=== PATIENT | female | born 1990 | race Caucasian/White ===

== ENCOUNTER 2017-04-23 14:00 | Inpatient (IN) | payer MEDICAID, SELFPAY ==
[2015-04-02 14:14] VITALS: BP 93/56
[2016-11-24 14:11] VITALS: BMI 27.3
[2016-11-24 15:12] VITALS: BP 111/62
[2017-04-23 13:26] VITALS: BMI 27.8
[2017-04-23 14:17] LABS: ROM Internal Control Test YES-OK TO RESULT pt. (Internal QC); ROM Patient Test Negative (Negative)
[2017-04-23] MEDS: Lactated Ringers 1,000 ML 50 ML IV ×4 (14:30→23:11)
[2017-04-23 14:49] LABS: Hematocrit 38.4 % (37-47); Hemoglobin 13.7 g/dl (12.0-15.0); Mean Corp Hgb Conc 35.7 g/gl (32-36); Mean Corpuscular Hgb 32.1 pg (27.0-32.0); Mean Corpuscular Volume 89.9 fL (81-99); Mean Platelet Vol. 10.3 fl (6.2-12.0); Platelet Count 247 K/mm3 (150-450); RBC Distribution Width CV 12.5 % (11.6-14.6); RBC Distribution Width SD 40.7 fl (35.1-43.9); Red Blood Count 4.27 M/mm3 (4.2-5.4); White Blood Count 14.2 K/mm3 (4.4-11.0)
[2017-04-23 14:51] LABS: Scan Indicated on CBC? Y/N NO
[2017-04-23] MEDS: Amnioinfusion- 0.9% NS 1,000 ML IV.SOLN. INTRA-UTER (17:30)
[2017-04-23] MEDS: Terbutaline 1 MG/ML Vial 0.25 MG SC (18:29)
--- NOTE | 2017-04-23 19:40 | PCM.HP.OB ---
History Date of Admission: 04/23/17 Gestational age: 38 History of this : 27 YOF @ 38 2/7 weeks gestation w/ EDC of 05/05/17 by lmp confirmed by first trimester US presents c/o ctxs increasing in intensity throughout the am. N o VB/LOF. Admitted for labor. Good FM. uncomplicated to date. She gained no net weight during the . PMHX- abnormal pap smear, chlamydia, PID, anxiety, fracture of spine, seizures PSHX: tonsilectomy, ovarian abscess removed, suction D&C Allergies Penicillins Allergy (Verified 11/24/16 14:13) Swelling Current Medications Acetaminophen (Tylenol) 325 - 650 mg PO Q4H PRN PRN PRN Reason: PAIN OR FEVER >100.4F Al Hydroxide/Mg Hydroxide (Mylanta Ii) 15 - 30 ml PO Q4H PRN PRN PRN Reason: INDIGESTION Citric Acid/Sodium Citrate (Bicitra) 30 ml PO UD PRN Lactated Ringer's () 1,000 mls @ 50 mls/hr IV .Q20H WAQAR Last Admin: 04/23/17 16:17 Dose: 50 mls/hr Naloxone HCl 4 mg/ Dextrose 504 mls @ 0 mls/hr IV PRN PRN; Protocol PRN Reason: TO MAINTAIN RR>10 Nalbuphine HCl (Nubain) 5 - 10 mg IV Q3H PRN PRN PRN Reason: PAIN (4-10/10) Nalbuphine HCl (Nubain) 5 mg IV Q3H PRN PRN Reason: ITCHING Stop: 04/24/17 15:52 Naloxone HCl (Narcan) 0.2 mg IV Q1M PRN PRN Reason: RR<10 AND PT UNRESPONSIVE Stop: 04/24/17 15:52 Ondansetron HCl (Zofran) 4 mg IV Q8H PRN PRN PRN Reason: NAUSEA Promethazine HCl (Phenergan (Ll)) 6.25 - 12.5 mg IV Q4H PRN PRN; Protocol PRN Reason: IF NAUSEA PERSISTS Sodium Chloride () 5 - 15 ml IV UD [facility] Last Admin: 04/23/17 16:16 Dose: Not Given Smoking Status: Current every day smoker Alcohol: None Drug Use: none - during Number of Fetus(es): 1 Review of Systems Constitutional: Denies: Chills, Fever Cardiovascular: Denies: Chest Pain Respiratory: Denies: Cough, Shortness of Breath Physical Exam Vitals: Vital Signs BP 111/62 11/24/16 15:12 General: Alert, No apparent distress, - - uncomfortable w/ ctxs Cardiovascular: Regular rate Lungs: Normal air movement Abdomen: Soft, Non-Distended, Gravid, Appropriate for Gestational Age Extremities:: No edema Estimated gestational size: Appropriate for gestational size Presentation: Cephalic Cervix Dilation (cm): 3 Station: -2 Effacement (%): 70 Assessment/Plan 27 YOF @ 38 2/7 weeks gestation in labor EFW < 4500 gm, pelvis clinically adequate to expect vaginal delivery Epidural if desires
[2017-04-23] MEDS: Ondansetron 4 MG/2 ML Vial IV (20:05)
--- NOTE | 2017-04-23 20:22 | PCM.PN.BLA ---
Progress Note Patient was taken to OR for prolonged deceleration and when she arrived FHTs stable at 130-140 bpm. Given term x 1 as had spont. tachysystole. FHTs then stable w/ minimal then moderate variablity, occas. variable. Amnioinfusion was started. Patient then moved back to her room. Now FHTs 150 bpm w/ moderate variabliity and occas. variable. 8/90/0. Cont. expectant management.
[2017-04-23] MEDS: Acetaminophen 325 MG Tablet PO (21:09)
--- NOTE | 2017-04-23 23:00 | PLAC_PTH ---
PATIENT: RAQUEL MARIO LOC: [facility] U#:[id number] AGE/SX: 27/F ROOM: WP018 RE04/23/[address]: Dr. Deborah Morton MD : 1990 BED: 1 DIS: 04/25/2017 SPEC #: [id number] RECD: 04/24/17 16:42 STATUS: BRAULIO AMRIT #: [id number] MIRYAM: 04/23/17 23:[address]: Deborah Morton DEPT: SURGICAL PATHOLOGY RECD BY: Ag Venegas ENTERED: 04/26/17 10:34 SP TYPE: PLACENTA OTHR DR: Dr. Brett Hoff MD Tissues: Placenta, NOS Procedures: Surgery Specimen Level V HEADER OPERATION: Vaginal delivery PRE-OP DIAGNOSIS: Fever, labor TISSUE SUBMITTED: Placenta MICROSCOPIC DIAGNOSIS Paulino placenta (418 gm): Umbilical cord ? trivascular with acute funisitis. Placental membranes ? acute chorioamnionitis and acute deciduitis. Placental disc ? Thelma-Campbell change, acute deciduitis and acute vasculitis of superficial placental vessels. AM:wilner 04/27/17 MICROSCOPIC DESCRIPTION Slides are reviewed. GROSS DESCRIPTION SPECIMEN: PLACENTA / CLINICAL INFORMATION: A. Weight: 2.849 kg B. Gestational Age: 38 weeks C. Sex: Male PLACENTAL WEIGHT (POST FIXATION): 418 gm PLACENTAL DIMENSIONS: 16 x 16 x 3 cm PLACENTAL SHAPE: Usual ovoid PLACENTAL WEIGHT FOR GESTATIONAL AGE: Within 10-99th percentile MEMBRANES - Present A. Insertion: Marginal B. Site of rupture from edge: 6 cm from edge of placental disc C. Color of membrane: Meadows-levy D. Abnormalities: None UMBILICAL CORD ? Present, received in two fragments (detached and attached) A. Color: Meadows-levy B. Insertion: Eccentric C. Length: 25 cm D. Diameter: 1 cm E. Number of vessels: Three F. Abnormalities: None PLACENTAL DISC - Present A. Color of surface: Meadows-levy B. surface abnormalities: None C. Maternal cotyledons: Intact with minimal tears D. Attached retro placental clot: No clot E. Cut surface: Dark red and spongy F. Lesions: None G. Separate clot: Absent SECTIONS SUBMITTED: 1. Membrane roll and umbilical cord ( end notched) 2. Placental disc, and maternal surfaces 3. Placental disc, and maternal surfaces 4. Placental disc, and maternal surfaces AM:wilner 04/26/17 TC:2 CPT: 01624
[2017-04-23] MEDS: Oxytocin 30 units/NS 500 ml 30 UNITS/500 ML IV.SOLN 334 UNITS IV (23:41)
[2017-04-23] MEDS: Methylergonovine 0.2 MG/ML Ampul IM (23:46)
--- NOTE | 2017-04-23 23:55 | PCM.OB.VAG ---
Vaginal Delivery Maternal Presentation: Active Labor Amniotic Membrane Rupture Type: Artificial Amniotic Fluid Description: Clear Final FRANSICO: 05/05/17 Gestational age: 38 Weeks and 2 Days Date of Procedure: 04/23/17 Pre-Operative Diagnosis: labor Post-Operative Diagnosis: same Surgery/ Procedure Performed: Spontaneous Vaginal Delivery Type of Anesthesia: Epidural Description of Procedure: A vigorous male was delivered [LIANNA] over intact perineum. Loose nuchal cord ?1 was delivered through and then reduced easily. the remainder the infant was delivered with maternal pushing and gentle traction only in less than 15 seconds. The Pitocin infusion was initiated for active management of the third stage. The cord was clamped and cut [after 1 minute]. The was attended to by the waiting nursing staff. The placenta was delivered spontaneously and intact. The cervix and vagina were intact. Sponge and needle counts were correct. He was given 1 dose of Methergine IM to prevent atony. A vaginal sweep was completed by me. The Mirena IUD was inserted in the usual fashion and the strings cut to 2 cm. Presentation: LIANNA Placental Delivery Description: Spontaneous Placenta Disposition: [facility] Cord Vessel Description: 3 Vessels Nuchal Cord Compression: Without compression Cord Entanglement: Around neck x 1, loose Drain: Henry to straight drain Estimated Blood Loss: 450 Infant A gender: Male (1 minute): 8 (5 minute): 9 Episiotomy Description: None Laceration: None Medications given after delivery: IV Pitocin Complications: None
[2017-04-24] MEDS: Oxytocin 30 units/NS 500 ml 30 UNITS/500 ML IV.SOLN 167 UNITS IV (00:10)
[2017-04-24 02:06] VITALS: BP 114/69; PULSE 98; RESP 20; TEMP 36.7; O2SAT 98
[2017-04-24] MEDS: Naproxen 250 MG Tablet PO (02:20)
[2017-04-24] MEDS: 0.9% Saline Lock 10 ML Syringe IV (02:21)
[2017-04-24 05:40] VITALS: BP 90/53; PULSE 93; RESP 18; TEMP 36.6; O2SAT 98
[2017-04-24 09:05] VITALS: BP 106/36; PULSE 74; RESP 18; TEMP 36.3
--- NOTE | 2017-04-24 09:53 | PCM.PN.OB ---
Subjective: No complaints - Physical Exam General: Alert, Oriented x3 Abdomen: Soft, Non Tender, Non-Distended - ff mid & below umb Extremities: No Calf Tenderness Vital Signs Temp Pulse Resp BP Pulse Ox 97.8 F 93 18 90/53 L 98 04/24/17 05:40 04/24/17 05:40 04/24/17 05:40 04/24/17 05:40 04/24/17 05:40 Oxygen Delivery Method Room Air Weight: 162 lb 0.636 oz Body Mass Index (BMI) 27.8 Intake and Output for Last 24 Hours 04/22/17 04/23/17 04/24/17 23:59 23:59 23:59 Intake Total 1886 / 1886 1371 / 1371 Output Total 1896 / 1896 1800 / 1800 Balance -10 / -10 -429 / -429 Laboratory Tests Past 24 Hrs 04/23/17 04/23/17 04/23/17 13:40 14:30 14:30 WBC 14.2 H RBC 4.27 Hgb 13.7 Hct 38.4 MCV 89.9 MCH 32.1 H MCHC 35.7 RDW 12.5 RDW Differential 40.7 Plt Count 247 MPV 10.3 Vag Amniotic Fld Detect Negative Blood Type O POSITIVE Antibody Screen NEGATIVE Assessment/Plan PPD#1 Routine care
[2017-04-24 12:00] VITALS: BP 101/62; PULSE 76; RESP 18; TEMP 36.8
[2017-04-24 16:35] VITALS: BP 98/54; PULSE 68; RESP 18; TEMP 36.1; O2SAT 98
--- NOTE | 2017-04-24 17:26 | CASEMGMT ---
Referral received d/t report of pt's previous chemical dependency and incarceration. Met with pt to discuss. Introduced self and role; pt voiced awareness that a social work referral had been made and why. Pt reported that she was released from incarceration in July of 2016 and became fairly soon thereafter. She stated that she completed all assigned tasks/trainings/testing since her release. Her armored vehicle officer is Vijaya Wilder and at this point because of her compliance she is having only monthly meetings with her. Pt said that her armored vehicle officer directed her to complete a CBT group as well as a parenting group, both of which she described as having been helpful. Pt stated that she has had regular drug tests and denied any difficulty maintaining her sobriety, stating she is done with drugs and that they ruined my life. Pt is currently employed as a cook at [employer] and said she is able to take up to twelve weeks off from work without concern for losing her job. She said at this time she plans to return to work once she is medically cleared to do so. Pt is in a relationship with FORamakrishna, Andres Munoz, but they do not live together. Pt resides with her father and AYAD lives with his brother and COREY, who were visiting pt/baby this afternoon. This is pt's first child. She was ordered to one year of probation but said that her armored vehicle officer has mentioned possibly discontinuing probation earlier because pt has been consistent and compliant with court orders and expectations. Pt said she has a bassinet, diapering supplies, formula and bottles, and an infant carrier to take the baby home. Provided pt with written and verbal information re: PPD, [facility], local resources for mothers/families, and safe sleep. Pt declined this worker's offer of a referral to [facility] but was willing to accept the information re: the program; emphasized to pt that she may request [facility] services at a later time if so desired. Pt denied any additional needs/concerns for homegoing. Discussed with nursing.
[2017-04-24 20:11] VITALS: BP 104/70; PULSE 77; RESP 18; TEMP 36.1
[2017-04-25 01:55] VITALS: BP 108/55; PULSE 79; RESP 18; TEMP 36.1
[2017-04-25 07:50] VITALS: BP 92/80; PULSE 71; RESP 17; TEMP 36.9; O2SAT 98
[2017-04-25 10:01] VITALS: BP 105/67; PULSE 81; RESP 16; TEMP 36.7
--- NOTE | 2017-04-25 10:03 | PCM.DCVAG ---
Discharge Diet: No Restrictions Discharge Activity: May Drive, May Shower May resume sexual activity in: 4-6 weeks Weight Bearing Status: Weight bearing as tolerated Additional Instructions: If you experience any of the following, contact your healthcare provider. Bleeding that soaks a pad every hour for 2 hours Fever 100.4 or higher Unrelieved incision or abdominal pain Swelling, redness, discharge or bleeding from your incision or episiotomy site Your incision begins to separate Problems urinating (including inability to urinate or burning while urinating). Visual changes Severe headache Flu-like symptoms Pain or redness in one of both of your breasts Pain, warmth, tenderness or swelling in your legs, especially the calf area Frequent nausea and vomiting Symptoms of depression or anxiety If you experience any of the following, call 911 or go to the nearest Emergency Room. Chest pain Problems breathing Seizure activity Partial or complete paralysis of a body part, slurred speech, weakness or drooping of the face, or a sudden inability to walk or hold your balance Allergies/Adverse Reactions: Allergies Penicillins Allergy (Verified 11/24/16 14:13) Swelling Medications to take at Discharge Vits [Prenatabs FA ] 1 tablet PO DAILY 04/23/17 Naproxen [Naprosyn] 250 - 500 mg PO Q8H PRN PRN #40 tab 04/25/17 The following prescriptions were given: Naproxen [Naprosyn] 250 - 500 mg PO Q8H PRN PRN #40 tab PRN Reason: Mild Pain (-05/29) Primary Care Physician: Brett Hoff MD [Primary Care Provider] -
--- NOTE | 2017-04-25 10:04 | DCINST_ITS ---
Discharge Diet: No Restrictions Discharge Activity: May Drive, May Shower May resume sexual activity in: 4-6 weeks Weight Bearing Status: Weight bearing as tolerated Additional Instructions: If you experience any of the following, contact your healthcare provider. * Bleeding that soaks a pad every hour for 2 hours * Fever 100.4 or higher * Unrelieved incision or abdominal pain * Swelling, redness, discharge or bleeding from your incision or episiotomy site * Your incision begins to separate * Problems urinating (including inability to urinate or burning while urinating) . * Visual changes * Severe headache * Flu-like symptoms * Pain or redness in one of both of your breasts * Pain, warmth, tenderness or swelling in your legs, especially the calf area * Frequent nausea and vomiting * Symptoms of depression or anxiety If you experience any of the following, call 911 or go to the nearest Emergency Room. * Chest pain * Problems breathing * Seizure activity * Partial or complete paralysis of a body part, slurred speech, weakness or drooping of the face, or a sudden inability to walk or hold your balance Allergies/Adverse Reactions: Allergies Penicillins Allergy (Verified 11/24/16 14:13) Swelling Medications to take at Discharge Vits [Prenatabs FA ] 1 tablet PO DAILY 04/23/17 Naproxen [Naprosyn] 250 - 500 mg PO Q8H PRN PRN #40 tab 04/25/17 The following prescriptions were given: Naproxen [Naprosyn] 250 - 500 mg PO Q8H PRN PRN #40 tab PRN Reason: Mild Pain (-05/29) Primary Care Physician: Brett Hoff MD [Primary Care Provider] -
--- NOTE | 2017-04-25 10:04 | PCM.PN.OB ---
Subjective: NO complaints - Physical Exam General: Alert, Oriented x3 Abdomen: Soft, Non Tender, Non-Distended - ff mid & below umb Extremities: No Calf Tenderness Vital Signs Temp Pulse Resp BP Pulse Ox 98.5 F 71 17 92/80 98 04/25/17 07:50 04/25/17 07:50 04/25/17 07:50 04/25/17 07:50 04/25/17 07:50 Oxygen Delivery Method Room Air Weight: 162 lb 0.636 oz Body Mass Index (BMI) 27.8 Intake and Output for Last 24 Hours 04/23/17 04/24/17 04/25/17 23:59 23:59 23:59 Intake Total 1886 / 1886 1371 / 1371 Output Total 1896 / 1896 2450 / 2450 Balance -10 / -10 1079 / -1847 Assessment/Plan PPD#2 d/c home
[2017-04-25 15:00] VITALS: BP 122/78; PULSE 85; RESP 16; TEMP 36.8
[2017-04-27 15:17] LABS: Pathology Specimen OB SEE PATHOLOGY REPORT
== END 2017-04-25 15:00 | disposition home or self-care (01) | DRG 373 ==
LOC: WPOUT 14:02
PROVIDERS: Admitting Provider Obstetrics & Gynecology; Family Provider Family Medicine; PCP Family Medicine; Visit Provider Obstetrics & Gynecology
DX: O69.81X0 Labor and delivery complicated by cord around neck, without compression, not applicable or unspecified (principal); O99.344 Other mental disorders complicating childbirth; F41.1 Generalized anxiety disorder; O76 Abnormality in fetal heart rate and rhythm complicating labor and delivery; O99.334 Smoking (tobacco) complicating childbirth; Z3A.38 38 weeks gestation of pregnancy; Z37.0 Single live birth
CPT/HCPCS: 59025; 59050; 84112; 85027; 86850; 86900; 88307; 99218; J7030; J7120; A4216; G0378; J2405

== ENCOUNTER 2017-12-31 15:24 | Emergency (ER) | payer MEDICAID, SELFPAY ==
[2017-12-31 15:26] VITALS: BP 110/81; PULSE 96; RESP 18; TEMP 36.4; O2SAT 100; BMI 20.5
[2017-12-31] MEDS: 0.9% Normal Saline 1,000 ML 150 ML IV (16:40)
[2017-12-31] MEDS: Ondansetron 4 MG/2 ML Vial IV ×2 (16:40→20:57)
[2017-12-31 16:56] LABS: Bacteria 0 SEEN /hpf (None Seen); Mucous, Urine 0 SEEN /hpf (<or=2+); Red Blood Cells-Urine 0 SEEN /hpf (0-5)
[2017-12-31 17:02] LABS: Color, Urine Yellow (Yellow); Glucose, Dipstick Normal (Normal); Ketone-Dipstick Negative (Negative); Leukocyte Esterase-Dipstick Negative /ul (Negative); Nitrite-Dipstick Negative (Negative); Occult Blood-Urine Negative /ul (Negative); Protein-Dipstick Negative (Negative); Specific Gravity, Urine 1.015 (1.002-1.030); Urine Bilirubin Dipstick Negative (Negative); Urine Clarity Clear (Clear); Urine Urobilinogen Normal (Normal)
[2017-12-31 17:05] LABS: Absolute Lymphocyte Count 1.17 X10^3/ul (0.83-4.51); Absolute Neutrophil Count 10.6 X10^3/uL (2.0-7.7); Basophil# 0.01 X10^3/uL; Basophil% 0.1 % (0-1); Eosinophils% 0.8 % (0-5); Hematocrit 45.4 % (37-47); Hemoglobin 15.2 g/dl (12.0-15.0); Lymphocyte # 1.17 X10^3/ul (4.0); Lymphocyte % 9.3 % (19-41); Mean Corp Hgb Conc 33.5 g/gl (32-36); Mean Corpuscular Hgb 30.3 pg (27.0-32.0); Mean Corpuscular Volume 90.4 fL (81-99); Mean Platelet Vol. 8.6 fl (6.2-12.0); Monocyte# 0.63 X10^3/uL; Neutrophil # 10.64 X10^3/uL (2.7-7.7); Neutrophil % 84.6 % (47-70); Platelet Count 287 K/mm3 (150-450); RBC Distribution Width CV 12.5 % (11.6-14.6); RBC Distribution Width SD 41.4 fl (35.1-43.9); Red Blood Count 5.02 M/mm3 (4.2-5.4); White Blood Count 12.6 K/mm3 (4.4-11.0)
[2017-12-31 17:10] LABS: Squamous Epithelial Cells - UA 0-5 SEEN /hpf (5-10); White Blood Cells 0-5 SEEN /hpf (0-5)
[2017-12-31 17:15] LABS: POSITIVE COUNT NO; POSITIVE DIFFERENTIAL NO; POSITIVE MORPHOLOGY NO
[2017-12-31 17:20] LABS: AST(SGOT) 14 U/L (15-37); Alanine Aminotransfer ALT/SGPT 27 U/L (13-56); Albumin, Serum 3.4 g/dL (3.2-5.0); Alkaline Phosphatase 73 U/L (45-117); Anion Gap 7 (5-15); BUN 14 mg/dL (7-18); BUN/Creat Ratio 21.2 RATIO (10-20); Bilirubin, Direct 0.17 mg/dL (0.00-0.30); Chloride 104 mmol/L (98-107); Creatinine, Serum 0.66 mg/dL (0.55-1.02); EST Glomerular Filtration Rate 114 mL/min (>60); Est Glom Filt Rate - Afr Amer 138 mL/min (>60); Estimated Creatinine Clearance 110.02 ml/min; Globulin 3.4 g/dL (2.2-4.2); Glucose 128 mg/dL (74-106); Lipase 84 U/L (73-393); Potassium 3.4 mmol/L (3.5-5.1); Protein, Total 6.8 g/dL (6.4-8.2); Sodium Level 139 mmol/L (136-145)
[2017-12-31 17:24] LABS: Pregnancy, Serum, hCG Quali. NEGATIVE Negative (0-9 Nonpreg)
[2017-12-31] MEDS: Dicyclomine 10 MG Capsule 20 MG PO (17:24)
[2017-12-31 17:26] VITALS: PULSE 104; RESP 14; O2SAT 100
--- NOTE | 2017-12-31 18:20 | CT_ITS ---
STUDY: CT ABDOMEN AND PELVIS WITH CONTRAST - VENOGRAM REASON FOR EXAM: Female, 27 years old. Abdominal pain RADIATION DOSAGE (If Supplied By Facility): CTDIvol = ( 7.18 ) mGy, DLP = ( 394.63 ) mGycm TECHNIQUE: Transaxial images were obtained from the dome of the diaphragm to the symphysis pubis without oral contrast. 100ml ml of Isovue 300 contrast was administered. Multiplanar coronal and sagittal images were reformatted. CT venogram protocol utilized, with delayed images performed during venous phase. Individualized Dose Optimization Techniques Were Used For This CT. COMPARISON: None. FINDINGS: The visualized lung bases are unremarkable. The visualized portions of the heart are within normal limits. Normal liver. Normal gallbladder and extrahepatic biliary system. Normal spleen. Normal pancreas. Normal bilateral adrenal glands. Normal right kidney. Normal left kidney. Normal visualized stomach. Normal small intestine. Normal colon. The appendix is visualized and appears normal. Normal abdominal aorta. No retroperitoneal adenopathy. IVC is patent. Normal urinary bladder. IUD in the uterus. Moderate pelvic free fluid. Normal abdominal wall. Normal osseous structures. CT/Abdomen/Pelvis WITH Contrast IMPRESSION: IUD in the uterus. Moderate pelvic fluid. Electronically Signed: Chaitanya Puentes DO at 20:58 EDT Tel [phone], Service support ,
[2017-12-31] MEDS: Morphine 4 MG/ML Syringe IV (18:30)
[2017-12-31 20:16] VITALS: BP 131/82; PULSE 99; RESP 18; O2SAT 98
--- NOTE | 2017-12-31 20:25 | ED.VISSUMM ---
- ER Visit Summary Date of Service: 12/31/17 Chief Complaint: Abdominal pain History of Present Illness: The patient is a 27 F who reports onset of generalized mid abdominal pain last evening. She reports nausea but no vomiting. She describes the pain as tight cramping in her intestines. She denies urinary symptoms or vaginal discharge. She states she has felt hot and cold at home but did not measure a fever. Physical Examination: Vital signs unremarkable. Patient is lying in bed no acute distress. Head neck examination normal. Heart is regular rate and rhythm. No lung sounds are clear. Abdomen is soft with minimal tenderness in the periumbilical region. No guarding or rebound. Hypoactive bowel sounds are noted throughout. Test Results: White count is slightly elevated at 12.6 with 85% neutrophils. Hemoglobin is concentrated at 15.2. Chemistry studies show potassium 3.4 and a glucose of 128. LFTs and lipase are normal. Urinalysis normal. test negative. Emergency Department Course and Treatment: Patient was given Bentyl, Zofran, and IV fluids. Due to continued pain she did receive a single dose of morphine. CT scan of the abdomen and pelvis was obtained with contrast. CT scan reveals IUD to be in place. There is moderate pelvic fluid noted. Normal-appearing appendix is noted. No other acute findings. I discussed with the patient that this may very well be from a ruptured ovarian cyst as her pain did start rather suddenly. Patient be discharged with analgesics and nausea Treatment Plan: [] Disposition: Discharge Impression: Abdominal pain This note was generated with [employer] dictation software. It may contain incorrect words, spelling, and punctuation that were not noted in review of the chart prior to signing ED Disposition - Plan for ED Patient: Chief Complaint: Abd Pain Referrals: Brett Hoff MD [Primary Care Provider] -
[2017-12-31] MEDS: Ketorolac 30 MG/ML Syringe IV (20:58)
[2017-12-31] MEDS: Morphine 2 MG/ML Syringe IV (20:59)
--- NOTE | 2017-12-31 21:23 | ED.DEP ---
ED Disposition - Plan for ED Patient: Disposition: Home or Assisted Living Chief Complaint: Abd Pain Instructions: ED Abdominal Pain Unkn Cause Prescriptions: Hydrocodone Bitart/Apap 5-325 [[place] 5MG-325MG] 1 tablet PO Q6H PRN PRN 3 Days #10 tablet PRN Reason: Pain Ondansetron [Zofran Odt] 4 mg PO Q8H PRN PRN #10 tablet PRN Reason: Nausea Referrals: Brett Hoff MD [Primary Care Provider] - 5-7 Days
[2017-12-31] MEDS: HYDROcodone Bitartrate/Apap 5/325 Tablet PO (21:37)
[2017-12-31] MEDS: Ondansetron ODT 4 MG Tablet PO (21:37)
[2017-12-31 21:42] VITALS: BP 110/67; PULSE 98; RESP 17; O2SAT 100
== END 2017-12-31 21:43 | disposition home or self-care (01) ==
PROVIDERS: Emergency Provider Emergency Medicine; Family Provider Family Medicine; PCP Family Medicine
DX: R10.9 Unspecified abdominal pain (principal); R11.0 Nausea; Z72.0 Tobacco use; Z87.11 Personal history of peptic ulcer disease; Z86.69 Personal history of other diseases of the nervous system and sense organs; Z97.5 Presence of (intrauterine) contraceptive device
CPT/HCPCS: 74177; 80048; 80076; 81001; 83690; 84703; 85025; 96361; 96374; 96375; 96376; 99283; J7030; J7040; J7050; Q9967; A4216; J2405

== ENCOUNTER 2019-05-20 22:48 | Emergency (ER) | payer BC, SELFPAY ==
[2019-05-20 22:48] VITALS: BMI 27.8
[2019-05-20 22:49] VITALS: BP 114/75; PULSE 112; RESP 14; TEMP 36.8; O2SAT 100; BMI 23.6
--- NOTE | 2019-05-20 23:05 | EKG12_ITS ---
Test Reason : SUICIDAL Blood Pressure : / mmHG Vent. Rate : 099 BPM Atrial Rate : 099 BPM P-R Int : 146 ms QRS Dur : 086 ms QT Int : 352 ms P-R-T Axes : 064 067 065 degrees QTc Int : 451 ms Normal sinus rhythm Normal ECG Confirmed by IRMA ANTONIO, ABY ([id number]), editor in chief newspaper LISBETH WESLEY ([id number]) on 05/22/2019 10:18:27 AM Referred By: Ayaz Confirmed By:ABY SOLIS MD
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
[2019-05-20] MEDS: Activated Charcoal 50 GM/240 ML BOT PO (23:18)
[2019-05-20 23:30] LABS: Absolute Lymphocyte Count 2.09 X10^3/uL (0.83-4.51); Basophil# 0.03 X10^3/uL; Basophil% 0.5 % (0-1); Eosinophil# 0.29 X10^3/uL; Eosinophils% 4.8 % (0-5); Hematocrit 47.1 % (37-47); Hemoglobin 15.5 g/dL (12.0-15.0); Lymphocyte # 2.09 X10^3/ul (4.0); Lymphocyte % 34.9 % (19-41); Mean Corp Hgb Conc 32.9 g/dL (32-36); Mean Corpuscular Hgb 29.9 pg (27.0-32.0); Mean Corpuscular Volume 90.8 fL (81-99); Mean Platelet Vol. 8.4 fl (6.2-12.0); Monocyte# 0.53 X10^3/uL; Monocyte% 8.9 % (0-10); NRBC Flagged by Analyzer 0 % (0-5); Neutrophil # 3.02 X10^3/uL (2.7-7.7); Neutrophil % 50.6 % (47-70); Platelet Count 324 K/mm3 (150-450); RBC Distribution Width CV 11.9 % (11.6-14.6); RBC Distribution Width SD 39.6 fl (35.1-43.9); Red Blood Count 5.19 M/mm3 (4.2-5.4)
[2019-05-20 23:38] LABS: Mucous, Urine 0 SEEN /hpf (<or=2+); Red Blood Cells-Urine 0 SEEN /hpf (0-5); White Blood Cells 0 SEEN /hpf (0-5)
[2019-05-20 23:43] LABS: Color, Urine Yellow (Yellow); Glucose, Dipstick Normal (Normal); Ketone-Dipstick Negative (Negative); Leukocyte Esterase-Dipstick Negative /ul (Negative); Nitrite-Dipstick Negative (Negative); Occult Blood-Urine Negative /ul (Negative); Protein-Dipstick Negative (Negative); Urine Bilirubin Dipstick Negative (Negative); Urine Clarity Clear (Clear); Urine Urobilinogen Normal (Normal)
[2019-05-20 23:48] VITALS: BP 101/57; PULSE 98; RESP 13; O2SAT 97
[2019-05-20 23:48] LABS: ALB/GLOB Ratio 1.2 RATIO (0.9-2.4); AST(SGOT) 23 U/L (15-37); Alanine Aminotransfer ALT/SGPT 39 U/L (13-56); Albumin, Serum 4.3 g/dL (3.2-5.0); Alkaline Phosphatase 90 U/L (45-117); Anion Gap 5 (5-15); BUN 14 mg/dL (7-18); BUN/Creat Ratio 18.9 RATIO (10-20); Calcium,Total 9.1 mg/dL (8.5-10.1); Chloride 103 mmol/L (98-107); Creatinine, Serum 0.74 mg/dL (0.55-1.02); EST Glomerular Filtration Rate 99 mL/min (>60); Est Glom Filt Rate - Afr Amer 119 mL/min (>60); Estimated Creatinine Clearance 96.86 ml/min; Globulin 3.6 g/dL (2.2-4.2); Glucose 93 mg/dL (74-106); Potassium 3.6 mmol/L (3.5-5.1); Protein, Total 7.9 g/dL (6.4-8.2); Sodium Level 138 mmol/L (136-145)
[2019-05-20 23:50] LABS: Bacteria RARE /hpf (None Seen); Squamous Epithelial Cells - UA 0-5 SEEN /hpf (5-10)
[2019-05-20 23:51] LABS: Amorphous Sediment RARE
[2019-05-20 23:56] LABS: Amphetamine Urine VISTA NEGATIVE (<1000 ng/mL); Barbiturate Urine VISTA NEGATIVE (< 200 ng/mL); Benzodiazepine Urine VISTA NEGATIVE (< 200 ng/mL); Cocaine Urine VISTA NEGATIVE (< 300 ng/mL); Ecstacy Urine VISTA NEGATIVE (< 500 ng/mL); Methadone Urine VISTA NEGATIVE (< 300 ng/mL); PCP Urine VISTA NEGATIVE (< 25 ng/mL); THC Urine VISTA NEGATIVE (< 50 ng/mL); Vista UDS pH Range 7
[2019-05-21] VITALS (12 sets, daily range): BP systolic 101–103; BP diastolic 52–81; PULSE 80–106; RESP 13–19; TEMP 36.8; O2SAT 84–99
[2019-05-21 00:01] LABS: Alcohol, Blood (Medical)-Serum < 3.0 mg/dL
[2019-05-21 00:05] LABS: Internal QC Validated? YES +Cl - CLEAR BKGD; Pregnancy, Serum, hCG Quali. NEGATIVE Negative
[2019-05-21 00:11] LABS: Acetaminophen (Tylenol) Level < 2.0 ug/mL (10.0-30.0); Salicylate < 1.7 mg/dL (2.8-20.0)
[2019-05-21 04:32] LABS: Acetaminophen (Tylenol) Level 8.3 ug/mL (10.0-30.0)
--- NOTE | 2019-05-21 06:50 | ED.RN ---
verbal order to dc monitor at this time
--- NOTE | 2019-05-21 07:21 | ED.RN ---
pt very agitated. has been screaming and swearing since this rn arrived. dr aguilar in to talk with pt. pt screams.if i wanted to kill myself i would blow my fucking brains out. pt then throws cell phone across room and slams it into wall. phone removed. vianey velazquez in to talk with pt.
--- NOTE | 2019-05-21 07:35 | ED.RN ---
Pt screaming out and throws phone against wall. Screams she is not crazy and we are treating her like she's crazy. Redirection related to pt actions prior to admit. She states she took pills to see if he cared about her. I explained how this action does not necessarily make her crazy and she may have never done this in the past or again in the future but it was a dangerous action now. She does not take redirection readily but does, with encouragement, calm down. She was encouraged to speak calmly and ask for myself or kyung with requests. She was informed she could have her phone returned by maintaining her behavior for one hour. We are unable to charge her phone as requested as we do not have the proper charging cable.
--- NOTE | 2019-05-21 09:09 | NURSING ---
CALLED [facility] TO LET THEM KNOW WE NOW HAVE THE INSURANCE CARD OF PATIENT
--- NOTE | 2019-05-21 10:05 | ED.RN ---
information recieved by santhosh schneider
--- NOTE | 2019-05-21 11:14 | ED.RN ---
PT HAS SON IN THE ROOM VISITING. CHARGE NURSE AWARE
--- NOTE | 2019-05-21 11:32 | ED.RN ---
PT SON HERE VISITING. FOOD BROUGHT BY FAMILY
--- NOTE | 2019-05-21 11:47 | ED.RN ---
PT YELLING AND SWEARING AGAIN. PT REMINDED THAT IT IS NOT ACCEPTABLE
--- NOTE | 2019-05-21 13:23 | ED.RN ---
PT INFORMED EMS WILL BE HERE AROUND 1330 TO PICK HER UP TO TAKE HER TO [facility]. THIS RN ASKED IF SHE HAD ANY BELONGINGS LEFT WITH HER. PT STATES SHE HAS WALLET AND GIVES IT TO THIS RN TO PLACE WITH REST OF BELONGINGS. PT AND SITTER CONFIRM FAMILY MEMBER CAME AND PICKED UP CELL PHONE FROM PATIENT. PT THEN HAD AN OUTBURST ABOUT BEING TAKEN BY [facility]. STATING YOU GUYS ARE RUINING MY LIFE, RUINING MY CREDIT, I CANT AFFORD A AMBULANCE RIDE. EMOTIONAL SUPPORT PROVIDED. PT EDUCATED ON WHY SHE NEEDS TO GO BY AMBULANCE. PT COVERED HER HEAD WITH BLANKET AND REFUSED TO SPEAK WITH NURSE ANYMORE.
--- NOTE | 2019-05-21 13:46 | ED.RN ---
TRANSPORT AT BEDSIDE. REPORT GIVEN. PT GET HERSELF ON THEIR COT AND GOES WITHOUT DIFFICULTIES.
== END 2019-05-21 13:47 ==
PROVIDERS: Emergency Provider Emergency Medicine; PCP Family Medicine
DX: T39.1X2A Poisoning by 4-Aminophenol derivatives, intentional self-harm, initial encounter (principal); T44.4X2A Poisoning by predominantly alpha-adrenoreceptor agonists, intentional self-harm, initial encounter; Y92.9 Unspecified place or not applicable; F32.9 Major depressive disorder, single episode, unspecified; R45.1 Restlessness and agitation; Z88.0 Allergy status to penicillin
CPT/HCPCS: 80053; 80307; 80320; 80329; 81001; 84703; 85025; 93005; 99285; A4216; G0480; J3486

== ENCOUNTER 2020-01-06 21:41 | Emergency (ER) | payer MEDICAID, SELFPAY ==
[2020-01-06 21:42] VITALS: BP 124/82; PULSE 111; RESP 16; TEMP 36.6; BMI 24.0
--- NOTE | 2020-01-06 21:47 | RAD_ITS ---
STUDY: X-RAY - LEFT FOOT CLINICAL: Female, 29 years old. TABLE FELL ON FIRST DIGIT, PAIN AND BLEEDING TECHNIQUE: 3 view(s) of the foot. COMPARISON: None. FINDINGS: Normal talus, calcaneus, and tarsal bones. Normal visualized subtalar, talonavicular, calcaneocuboid, tarsal and tarsometatarsal articulations. Normal metatarsi. Normal metatarsophalangeal joint of the great toe. Normal tibial and fibular sesamoid bones. Normal interphalangeal joint of the great toe. Normal phalanges of the great toe. Normal second through fifth metatarsophalangeal joints. Normal interphalangeal joints and phalanges of the lesser toes. The soft tissue structures are unremarkable. RAD/Foot min 3 Views IMPRESSION: Normal x-ray examination of the foot. Electronically Signed: Kehinde Blood, at 21:59 EDT Tel , Service support ,
--- NOTE | 2020-01-06 22:08 | ED.DCSUM_ITS ---
History of Present Illness Chief Complaint: Lower Extremity Injury Informant: Patient Occurred: Today Mechanism/Context: Injury Onset: Today - JP Context: Sudden Onset Timing: Continuous Quality of Pain: Aching, Throbbing Location: left great toe Current Severity: Severe Maximum Severity: Severe Worsened by: moving, palpation Relieved by: leaving alone Associated Symptoms: Negative for: Parasthesia, Weakness, Loss of Funtion Narrative: Accidentally dropped a piece of furniture onto her big toe while she was trying to move it. Past Medical History - Allergies and Home Meds Allergies/Adverse Reactions: Allergies Penicillins Allergy (Verified 01/06/20 21:42) Swelling shellfish derived Allergy (Verified 01/06/20 21:42) Swelling Primary Care Physician: Robson Garcia DPM [STAFF PHYSICIAN] - As Needed Brett Hoff MD [Primary Care Provider] - Past Medical History: None Lives: With Family Smoking Status: Current every day smoker Review of Systems General: Denies: Chills, Fever, Sweats Musculoskeletal: Reports: Extremity Pain Skin: Reports: Wounds - Bleeding from the nail of the left great toe. Denies: Rash Neurological: Denies: Headache, Weakness, Numbness Physical Exam Vital Signs/Narrative: Vital Signs Temp Pulse Resp BP 01/06/20 21:42 97.9 F 111 H 16 124/82 H Inital Vital Signs reviewed: Yes - Extremity Exam Left Foot: Limited ROM - With regards to great toe only. No deformities. Able to move the MTPJ. Bleeding from the dorsum at the proximal nail. Distal phalanx of the great toe is very tender. All other toes are nontender and atraumatic. The rest of the foot is atraumatic and nontender. General: Well nourished, Well developed, - - NAD Head: Normocephalic, Atraumatic Skin: Normal color, No rash, Trauma Neurological: Alert, Oriented x3, Cranial nerves II-XII grossly intact, Normal Strength, Normal Sensation Psychological: Normal affect, Normal Mood Diagnostic/Tx/Re-eval Clinical Impression(s) from Imaging Studies Foot X-Ray 01/06/20 21:47 IMPRESSION: Normal x-ray examination of the foot. Electronically Signed: Kehinde Blood, at 21:59 EDT Tel , Service support , - Medical Decision Making Patient's foot was soaked for a while, she was given analgesics. When I was able to reevaluate her nail, it appears to have a laceration that is partial- thickness just proximal to the cuticle, probably due to the peroneal aspect of the nail of the great toe being partially avulsed, and in the process cutting the skin over the cuticle where the edge of the nail is. However the tibial aspect of the nail is intact in the cuticle/nail fold. There is subungual hematoma, but there was some mild bleeding at the peroneal aspect of the nail, where the pressure was obviously released from. I discussed all of this and the options with the patient, including the possibility of a minor nailbed laceration, but I do not think that we necessarily have to remove the nail to explore that option. Also discussed the possibility and the probability that she may lose the nail has another one hopefully regrows and also the possibility of her losing the nail and another nail not regrowing. She understands all this and opts for leaving it all alone, which I am fine with. Dressed with bacitracin given a postop shoe along with a prescription for some analgesics. ED Disposition - Plan for ED Patient: Disposition: Home or Assisted Living Diagnosis: Contusion of great toe with damage to nail Instructions: ED FOOT CONTUSION, ED Hematoma Subungual Prescriptions: Hydrocodone Bitart/Apap 5-325 [[place] 5MG-325MG] 1 tab PO Q4H PRN PRN 2 Days #10 tab PRN Reason: Pain Prescription Printed Referrals: Brett Hoff MD [Primary Care Provider] - Robson Garcia DPM [STAFF PHYSICIAN] - As Needed
[2020-01-06] MEDS: Naproxen 500 MG Tablet PO (22:17)
[2020-01-06] MEDS: HYDROcodone Bitartrate/Apap 5/325 Tablet PO (22:17)
[2020-01-06 23:26] VITALS: RESP 18
== END 2020-01-06 23:27 | disposition home or self-care (01) ==
PROVIDERS: Emergency Provider Emergency Medicine; PCP Family Medicine
DX: S90.212A Contusion of left great toe with damage to nail, initial encounter (principal); W20.8XXA Other cause of strike by thrown, projected or falling object, initial encounter; Y93.9 Activity, unspecified; Y92.9 Unspecified place or not applicable; Y99.9 Unspecified external cause status; F17.200 Nicotine dependence, unspecified, uncomplicated
CPT/HCPCS: 73630; 99281; 99284

== ENCOUNTER 2020-09-27 13:52 | Inpatient (IN) | payer MEDICAID, SELFPAY ==
[2020-09-27] VITALS (36 sets, daily range): BP systolic 93–132; BP diastolic 50–82; PULSE 65–190; TEMP 36.3–36.6; O2SAT 83–100; BMI 28.1
[2020-09-27] MEDS: Lactated Ringers 1,000 ML 50 ML IV (14:40)
[2020-09-27 14:57] LABS: Absolute Lymphocyte Count 1.34 X10^3/uL (0.83-4.51); Absolute Neutrophil Count 6.5 X10^3/uL (2.0-7.7); Basophil# 0.02 X10^3/uL; Basophil% 0.2 % (0-1); Eosinophil# 0.15 X10^3/uL; Eosinophils% 1.7 % (0-5); Hematocrit 35.3 % (37-47); Hemoglobin 11.9 g/dL (12.0-15.0); Lymphocyte # 1.34 X10^3/ul (0.83-4.51); Lymphocyte % 15.5 % (19-41); Mean Corp Hgb Conc 33.7 g/dL (32-36); Mean Corpuscular Hgb 30.4 pg (27.0-32.0); Mean Corpuscular Volume 90.3 fL (81-99); Mean Platelet Vol. 10.1 fl (6.2-12.0); Monocyte# 0.57 X10^3/uL; Monocyte% 6.6 % (0-10); NRBC Flagged by Analyzer 0 % (0-5); Neutrophil # 6.46 X10^3/uL (2.7-7.7); Neutrophil % 75.1 % (47-70); Platelet Count 269 K/mm3 (150-450); RBC Distribution Width CV 12.7 % (11.6-14.6); RBC Distribution Width SD 41.3 fl (35.1-43.9); Red Blood Count 3.91 M/mm3 (4.2-5.4); White Blood Count 8.6 K/mm3 (4.4-11.0)
[2020-09-27 16:16] LABS: Amphetamine Urine VISTA NEGATIVE (<1000 ng/mL); Barbiturate Urine VISTA NEGATIVE (< 200 ng/mL); Benzodiazepine Urine VISTA NEGATIVE (< 200 ng/mL); Cocaine Urine VISTA NEGATIVE (< 300 ng/mL); Ecstacy Urine VISTA NEGATIVE (< 500 ng/mL); Methadone Urine VISTA NEGATIVE (< 300 ng/mL); PCP Urine VISTA NEGATIVE (< 25 ng/mL); THC Urine VISTA NEGATIVE (< 50 ng/mL); Vista UDS pH Range 6
[2020-09-27] MEDS: Oxytocin 30 units/NS 500 ml 30 UNITS/500 ML IV.SOLN IV (17:15)
--- NOTE | 2020-09-27 18:48 | PCM.HP.OB ---
HPI - General General Date of Admission: 09/27/20 HPI Narrative RAQUEL MARIO, is a 30 F at 37.5 weeks who presents for induction of labor from the office due to having a deceleration while on NST. complicated by anxiety, tobacco use, and + urine tox for marijuana. Uterine size discrepancy- S<D, measuring 3 weeks behind and was scheduled for growth ultrasound this week in office. Maternal Data Information FRANSICO Calculator Estimated Delivery Date Method Current WG Current Estimate 10/13/20 Manual 37w 5d PFSH PFS Medical History (Updated 09/27/20 @ 19:06 by Vijaya Teresa CNM) Anxiety Asthma Chlamydia PID (acute pelvic inflammatory disease) Seizures Home Medications Prilosec 1 tab DAILY 09/27/20 [History Last Taken Unknown] fluoxetine [Prozac] 10 mg PO DAILY 09/27/20 [History Last Taken 09/27/20 01:30] Allergy/AdvReac Type Severity Reaction Status Date / Time Penicillins Allergy Swelling Verified 09/27/20 15:12 shellfish derived Allergy Swelling Verified 09/27/20 15:12 Surgical History History of gynecologic surgery Hx of tonsillectomy Social History Smoking Status: Current every day smoker History Elective abortions Hx Para 1 Spontaneous abortions Hx # Term Pregnancies Ectopic pregnancies Hx # Pregnancies Multiple births # of living children NST FHR Rate Baby A Baseline: 135 Variability:: Moderate Accelerations:: 15 x 15 Decelerations:: None NST Reactive:: Yes FHR Category:: Category I Uterine Activity:: occasional ROS Eyes Eyes: Denies blurry vision, change in vision or spots in vision ENT HEENT: Denies dizziness or headache(s) Cardiovascular Cardiovascular: Denies abdominal pain, chest pain or dyspnea Respiratory/Chest Respiratory/Chest: Denies cough, dyspnea, shortness of breath at rest or shortness of breath with exertion Gastrointestinal Gastrointestinal: Denies abdominal pain, diarrhea or vomiting Genitourinary Genitourinary: Denies change in urinary stream, difficulty urinating or dysuria Musculoskeletal Musculoskeletal: Reports none Integumentary Integumentary: Denies rash Neurologic Neurologic: Denies dizziness, headache(s), memory loss or weakness Psychiatric Psychiatric: Reports anxiety and depression Vital Signs Vital Signs Vital Signs: 09/27/20 14:11 09/27/20 16:17 09/27/20 17:12 Temperature 97.7 F L 97.8 F Temperature Source Temporal Temporal Pulse Rate 95 82 77 Blood Pressure 131/82 H 109/58 L 107/68 BP Systolic 131 109 107 BP Diastolic 82 58 68 Pulse Ox 98 99 Weight Weight: 164 lb Body Mass Index (BMI) 28.1 Physical Exam Const alert, oriented x3 and no apparent distress General Appearance: cooperative Orientation / Consciousness: awake Exam Limitations: no limitations HEENT normocephalic Head and Scalp: normal to inspection Eyes General Eye: normal appearance of both eyes Neck full ROM and no lymphadenopathy Lymph Lymphatic: no lymphadenopathy noted Chest inspection of chest normal Resp normal respiratory effort, normal air movement and clear to auscultation bilaterally Effort and Inspection: able to speak in complete sentences and symmetric chest movement Cardio regular rate and regular rhythm GI normal to inspection, nondistended, normoactive bowel sounds Manual OB Exam: dilated 3, effaced 60 and station -2 Back/Spine normal ROM Extremity full ROM and no calf tenderness Skin no rashes or lesions noted General Skin Exam: no breakdown Neuro oriented x3 and CN's II-XII intact bilaterally Psych mental status grossly normal and thought process normal Labs Labs Labs: Blood Type O POSITIVE Antibody Screen NEGATIVE Hct 35.3 % (37-47) L Hgb 11.9 g/dL (12.0-15.0) L C.trachomatis DNA (PCR) POSITIVE (Negative) H Rhogam given: No GBS negative Rubella - immune HB - neg HC- neg HIV- NR GC/CH- neg Assessment & Plan (1) 37 weeks gestation of : (2) Uterine size date discrepancy: QUALIFIERS: Trimester: unspecified trimester Qualified Code(s): O26.849 - Uterine size-date discrepancy, unspecified trimester COMMENT: S<D EFW 25 % at 32 weeks gestation (3) Anxiety: (4) Tobacco use complicating : QUALIFIERS: Trimester: unspecified trimester Qualified Code(s): O99.330 - Smoking (tobacco) complicating , unspecified trimester PLAN: Admit to labor and delivery Routine labs GBS negative CEFM Start pitocin IV and titrate per policy Cat. 1 tracing, NST reactive Dr. Gonzáles aware of induction and is collaborating physician
[2020-09-27] MEDS: Lactated Ringers 500 ML 999 ML IV ×2 (20:00→22:19)
[2020-09-27] MEDS: fentaNYL-bupivacaine (epidural) 100 ML BAG EPIDURAL (21:05)
[2020-09-27] MEDS: Albuterol Sulfate 8 gm Inhaler (60 puffs) 2 PUFF INHALATION (21:31)
[2020-09-27] MEDS: Ondansetron 4 MG/2 ML Vial IV (23:10)
[2020-09-27] MEDS: 0.9% Saline Lock 10 ML Syringe IV (23:12)
[2020-09-27] MEDS: Lactated Ringers 1,000 ML 200 ML IV (23:30)
[2020-09-28] VITALS (16 sets, daily range): BP systolic 94–146; BP diastolic 47–71; PULSE 68–218; RESP 14–16; TEMP 36.4–37.1
[2020-09-28] MEDS: Oxytocin 30 units/NS 500 ml 30 UNITS/500 ML IV.SOLN 334 UNITS IV (01:21)
--- NOTE | 2020-09-28 01:28 | EX.PCM.OBRPT ---
Assessment & Plan (1) (spontaneous vaginal delivery): (2) Asthma: (3) Anxiety: Maternal Data Information FRANSICO Calculator Estimated Delivery Date Method Current WG Current Estimate 10/13/20 Manual 37w 6d Vaginal Delivery Maternal Presentation Maternal Presentation: Medically Indicated Induction Maternal Presentation: Patient is at 37.5 weeks gestation that was sent from office for induction of labor due to having deceleration while on NST in office. Type of Induction: Pitocin and Amniotomy Medical Reason for Induction: - (Category 2 tracing on NST in office/ Late deceleration) Operative Information Date of Procedure: 09/28/20 Pre-Operative Diagnosis: Term gestation Post-Operative Diagnosis: , live male infant Surgery / Procedure Performed: Spontaneous Vaginal Delivery Type of Anesthesia: Epidural Drain: Henry to straight drain Estimated Blood Loss: 200 Time of Delivery: 01:18 Findings Description of Procedure: Patient complete and +2 station. Infant head delivered with minimal maternal effort followed quickly by anterior shoulder, posterior shoulder and remainder of body. Vigorous male placed on maternal abdomen and attended to by nursing staff. IV Pitocin started for active management of third stage of labor. 3 vessel cord clamped and cut by patient's sister after 2 minute delay. Placenta delivered spontaneously and intact. Vagina and perineum intact. No lacerations. Hemostasis occurred. Fundus firm, 1 below U. EBL 200 cc, APGARS 8/9. Patient and infant bonding at this time. Dr. Gonzáles notified of delivery. Presentation: Vertex and LIANNA Amniotic Membrane Rupture Type: Artificial Time of Membrane Rupture: 2208 Amniotic Fluid Description: Clear Placental Delivery Description: Spontaneous Placenta Disposition: [facility] Cord Vessel Description: 3 Vessels Cord Entanglement: None A Gender: Male (1 minute): 8 (5 minute): 9 Delayed Cord Clamping: Yes Post Vaginal Delivery Medications Given After Delivery: IV Pitocin Episiotomy Description: None Laceration: None Complication Complications: None
[2020-09-28] MEDS: 0.9% Saline Lock 10 ML Syringe IV (04:15)
--- NOTE | 2020-09-28 09:11 | NURSING ---
0825 pt off unit to go outside to smoke. with pts sister.returned to unit at 0835
[2020-09-28] MEDS: FLUoxetine 10 MG Capsule PO (09:42)
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
[2020-09-28] MEDS: Naproxen 500 MG Tablet PO (16:04)
[2020-09-28] MEDS: Acetaminophen 500 MG Tablet 1000 MG PO (19:51)
[2020-09-29 01:00] VITALS: BP 100/58; PULSE 60; RESP 14; TEMP 36.4
[2020-09-29] MEDS: Acetaminophen 500 MG Tablet 1000 MG PO (06:32)
--- NOTE | 2020-09-29 07:15 | PCM.PN.OB ---
Subjective Subjective Patient seen at bedside. Denies any pain. Ambulating and voiding without difficulty. Denies any headaches, vision changes, dizziness, SOB or chest pain. Bottle feeding . Patient desires discharge home today. Objective Data Objective Data Vital Signs: Vital Signs Temp Pulse Resp BP Pulse Ox 97.5 F L 60 14 100/58 L 97 09/29/20 01:00 09/29/20 01:00 09/29/20 01:00 09/29/20 01:00 09/27/20 23:47 Oxygen Delivery Method Room Air Weight: 164 lb Body Mass Index (BMI) 28.1 Intake & Output: Intake and Output for Last 24 Hours 09/27/20 09/28/20 09/29/20 23:59 23:59 23:59 Intake Total 1710.94 / 1710.94 870.5 / 870.5 Output Total 400 / 400 Balance 1710.94 / 1710.94 470.5 / 470.5 Lab / Micro Data Result Diagrams: 09/27/20 14:40 Micro: Microbiology 09/27/20 15:40 Mucosa - Nose SARS-CoV-2 Antigen (Rapid) - Final ROS Eyes Eyes: Denies blurry vision, change in vision or spots in vision ENT HEENT: Denies dizziness or headache(s) Cardiovascular Cardiovascular: Denies abdominal pain, chest pain or dyspnea Respiratory/Chest Respiratory/Chest: Denies cough, dyspnea, shortness of breath at rest or shortness of breath with exertion Gastrointestinal Gastrointestinal: Denies abdominal pain, diarrhea or vomiting Genitourinary Genitourinary: Denies change in urinary stream, difficulty urinating or dysuria Musculoskeletal Musculoskeletal: Reports none Integumentary Integumentary: Denies rash Neurologic Neurologic: Denies dizziness, headache(s), memory loss or weakness Physical Exam Const alert and no apparent distress General Appearance: cooperative and comfortable Exam Limitations: no limitations HEENT normocephalic Eyes General Eye: normal appearance of both eyes Neck full ROM General: normal visual inspection Chest Chest: symmetrical chest wall rise Resp normal respiratory effort and normal air movement Effort and Inspection: symmetric chest movement Auscultation: clear to auscultation bilaterally Cardio regular rate and regular rhythm GI normal to inspection, nondistended, normoactive bowel sounds Back/Spine normal ROM Extremity full ROM and no calf tenderness General Extremity: normal exam except as noted Skin no rashes or lesions noted Neuro CN's II-XII intact bilaterally Psych mental status grossly normal Assessment & Plan (1) (spontaneous vaginal delivery): PLAN: PPD #2 - intact Routine care Discharge home today with follow up in office
--- NOTE | 2020-09-29 07:24 | PCM.DC ---
Discharge Instructions Diet Discharge Diet: No restrictions Activity May resume sexual activity in: 6-8 weeks Weight Bearing Status: Weight bearing as tolerated Dressing / Incision Call your doctor if you observe: Fever of 101 or Higher, Inability to urinate, Using more than 1 pad per hour, Shortness of breath, Chest pain, Calf discomfort and Uncontrolled pain Follow Up Care Please Follow Up With: Vijaya Teresa CNM When: 2 weeks virtual visit/ 6 weeks in office Test Results: Test results from this visit will be discussed in further detail at your follow-up appointment, if applicable. Discharge Plan Admission Admit Date/Time: 09/27/20 13:52 Primary Reason for Your Visit: Induction of labor Attending Provider: Vijaya Teresa Primary Care Provider: Brett Hoff Instructions Patient Instructions: After a Vaginal Discharge Orders/Prescriptions Prescriptions: Continued fluoxetine [Prozac] 10 mg Capsule 10 mg PO DAILY RF: 0 Prilosec 1 tab DAILY RF: 0 Referrals / Follow Up: Brett Hoff MD [Primary Care Provider] - Disposition Disposition (needs filled in before D/C Order can be placed): Home, Self Care
[2020-09-29 08:48] VITALS: BP 101/66; PULSE 62; RESP 12; TEMP 36.3
[2020-09-29] MEDS: FLUoxetine 10 MG Capsule PO (09:03)
[2020-09-29] MEDS: Naproxen 500 MG Tablet PO (11:17)
--- NOTE | 2020-10-03 16:00 | NURSING ---
no answer on follow up phone call, left voicemail
== END 2020-09-29 11:45 | disposition home or self-care (01) | DRG 560 ==
PROVIDERS: Admitting Provider Advanced Practice Midwife; PCP Family Medicine; Visit Provider Advanced Practice Midwife
DX: O76 Abnormality in fetal heart rate and rhythm complicating labor and delivery (principal); Z20.822 Contact with and (suspected) exposure to COVID-19; O26.843 Uterine size-date discrepancy, third trimester; O99.52 Diseases of the respiratory system complicating childbirth; J45.909 Unspecified asthma, uncomplicated; O99.334 Smoking (tobacco) complicating childbirth; F17.200 Nicotine dependence, unspecified, uncomplicated; O99.344 Other mental disorders complicating childbirth; F32.9 Major depressive disorder, single episode, unspecified; F41.9 Anxiety disorder, unspecified; Z79.899 Other long term (current) drug therapy; Z3A.37 37 weeks gestation of pregnancy; Z37.0 Single live birth
CPT/HCPCS: 59025; 59050; 80307; 85025; 86850; 86900; 86901; 87426; 99218; J7120; A4216; G0378; J2405

== ENCOUNTER 2021-06-05 15:38 | Outpatient (CLI) | payer MEDICAID, SELFPAY ==
[2021-06-05 18:13] LABS: AST(SGOT) 15 U/L (15-37); Alanine Aminotransfer ALT/SGPT 25 U/L (13-56); Albumin, Serum 3.6 g/dL (3.2-5.0); Alkaline Phosphatase 64 U/L (45-117); Bilirubin, Direct 0.11 mg/dL (0.00-0.30); Globulin 3.1 g/dL (2.2-4.2); Protein, Total 6.7 g/dL (6.4-8.2)
== END 2021-06-05 23:59 | disposition home or self-care (01) ==
LOC: MTLAB 15:41
PROVIDERS: PCP Family Medicine; Referring Provider Physician Assistant; Visit Provider Physician Assistant
DX: L60.9 Nail disorder, unspecified (principal); B35.3 Tinea pedis
CPT/HCPCS: 36415; 80076

== ENCOUNTER 2021-08-04 09:13 | Inpatient (IN) | payer MEDICAID, SELFPAY ==
[2021-08-04] VITALS (18 sets, daily range): BP systolic 84–106; BP diastolic 57–71; PULSE 112–130; RESP 18–35; TEMP 36.9–37.9; O2SAT 97–100; BMI 20.5; BMI 20.7
--- NOTE | 2021-08-04 09:34 | EKG12_ITS ---
Test Reason : SOB Blood Pressure : / mmHG Vent. Rate : 122 BPM Atrial Rate : 122 BPM P-R Int : 142 ms QRS Dur : 074 ms QT Int : 310 ms P-R-T Axes : 039 079 056 degrees QTc Int : 441 ms Sinus tachycardia Otherwise normal ECG Confirmed by ELVIN ANTNOIO, LENKA ([id number]), editor trade journal LISBETH WESLEY ([id number]) on 08/06/2021 10:30:18 AM Referred By: ELIZABETH Confirmed By:LENKA OCONNOR MD
--- NOTE | 2021-08-04 09:36 | EDS_ITS ---
HPI History of Present Illness Chief Complaint: Shortness of Breath Detail of Chief Complaint: Cough, fever, shortness of breath and feel terrible Informant: patient Onset/Context/Timing Onset: Yesterday Context: Sudden Onset Timing: Continuous Quality: Respiratory, lower Current Severity: Mild Maximum Severity: Moderate Worsened by: Dyspnea with exertion Relieved by: Nothing Associated Symptoms Associated Symptoms: Myalgias and arthralgias Narrative Narrative: Patient is a 31-year-old woman with no significant past medical history who presents because she feels terrible. She states she was seen at [facility] last evening. She did not complete her care. She states she received a dose of antibiotics. She does admit to smoking 1 pack/day. She has not had a cigarette since yesterday. She states her children were ill first with upper respiratory infection. She does not know the results of any of her tests. Patient complains of headache. She denies photophobia or neck stiffness. She denies earache or ringing in ears. She denies rhinorrhea or postnasal drainage. She denies sore throat. She denies abdominal pain, nausea, vomiting or diarrhe a. She denies dysuria, frequency, urgency or hematuria. She has not noted a rash. Her only exposure is her children. Prior similar symptoms: No Recent Illness/Hospitalization: Yes (Seen at [facility] last evening and left prior to completion of care) [facility] Medical History Anxiety Asthma Chlamydia PID (acute pelvic inflammatory disease) Seizures Home Medications NK 08/04/21 [History Last Taken Unknown] Allergy/AdvReac Type Severity Reaction Status Date / Time Penicillins Allergy Swelling Verified 08/04/21 09:13 shellfish derived Allergy Swelling Verified 08/04/21 09:13 Surgical History History of gynecologic surgery Hx of tonsillectomy Social History (Updated 08/04/21 @ 09:[address] Neville Ken MD) household members: children Smoking Status: Current every day smoker tobacco type: cigarettes substance use type: does not use ROS ROS ED Constitutional Constitutional ED: Reports chills, fever(s) and sweats; Denies weight loss Eyes Eyes: Denies blurry vision, change in vision or diplopia ENT ENT ED: Denies ear pain, rhinorrhea or sore throat Cardiovascular Cardiovascular: Denies chest pain, orthopnea, palpitations, paroxysmal nocturnal dyspnea or racing heartbeat Respiratory/Chest Respiratory/Chest: Reports cough, dyspnea and dyspnea on exertion; Denies orthopnea or paroxysmal nocturnal dyspnea Gastrointestinal Gastrointestinal: Denies abdominal pain, constipation, diarrhea, melena, nausea or vomiting Genitourinary Genitourinary ED: Denies dysuria, hematuria or urinary frequency Musculoskeletal Musculoskeletal: Reports arthralgias and myalgias; Denies back pain or neck pain Integumentary Denies abscess or rash Neurologic Neurologic: Reports weakness; Denies headache(s) or paresthesias Endocrine Endocrinology: Denies polydipsia, polyphagia or polyuria EXAM Physical Exam Const Vital Signs: 08/04/21 09:14 08/04/21 09:18 08/04/21 09:27 Temperature 100.3 F H Temperature Source Temporal Pulse Rate 129 H 128 H Respiratory Rate 18 Respiratory Effort Normal Non-Labored Respiratory Depth Shallow Respiratory Pattern Tachypnea Blood Pressure 84/57 L 91/62 Blood Pressure Mean 66 71 Pulse Ox 100 Oxygen Delivery Method Room Air 08/04/21 10:24 08/04/21 10:33 08/04/21 11:00 Temperature 100 F H 99.4 F H Temperature Source Temporal Oral Pulse Rate 119 H 124 H Respiratory Rate 24 H 26 H Respiratory Effort Respiratory Depth Respiratory Pattern Blood Pressure 99/64 106/70 Blood Pressure Mean 75 82 Pulse Ox 99 99 99 Oxygen Delivery Method Room Air Room Air Room Air 08/04/21 11:23 08/04/21 11:26 Temperature 99 F Temperature Source Oral Pulse Rate 124 H Respiratory Rate 24 H Respiratory Effort Respiratory Depth Respiratory Pattern Blood Pressure 106/70 Blood Pressure Mean 82 Pulse Ox 98 Oxygen Delivery Method Room Air Positive well nourished and well developed General Appearance ED: well developed and other Patient appears ill. She is warm to touch. She is hypotensive with a mean arterial pressure of 66. She is not hypoxic. She is tachycardic. ; Negative for cyanotic, diaphoretic, NAD or pallor HEENT Reports TM's clear and dry mucous membranes Negative for trauma or tenderness Tympanic Membrane ED: Yes TM's clear Mouth ED: Yes dry mucous membranes Mouth: dry mucous membranes Eyes PERRL and EOMs intact bilaterally General Eye ED: Negative for pale conjunctiva or scleral icterus Neck no lymphadenopathy, supple and no JVD Chest Wall palpation of chest normal Resp No normal respiratory effort and No clear to auscultation bilaterally Effort and Inspection: Negative for pain with movement Auscultation: rales right lower (There is egophony noted as well.) Cardio regular rhythm, S1 normal heart sound, S2 normal heart sound and no murmurs Rate: tachycardic GI normal to inspection, nondistended, normoactive bowel sounds and non-tender Palpation: soft Back/Spine no CVA tenderness Cervical Spine: Negative for cervical spine tenderness Thoracic Spine / Upper Back: Negative for thoracic spinal tenderness or paraspinal muscle tenderness Extremity normal to inspection General Extremety ED: Negative for edema or tenderness General Extremity: Negative for edema Neuro oriented x3 and CN's II-XII intact bilaterally Sensorium / Orientation: Negative for alert, lethargic or stuporous Motor Exam: strength 5/5 throughout Psych mental status grossly normal Skin no rashes or lesions noted and no wounds General Skin Exam: elasticity normal; Negative for jaundice or pallor MDM MDM MDM Narrative Medical decision making narrative: Clinically patient has pneumonia. Since she is hypotensive she will receive a fluid bolus. Antibiotics were ordered. She was treated with levofloxacin since she has allergy to penicillin, swelling. Sepsis work-up was initiated. The COVID test was not repeated since she had a COVID test at outside facility. The documents from outside facility reviewed. She did not have a COVID test. Will obtain rapid COVID and influenza test. Spoke with patient. She is willing to stay. Lab Data Attestation: I reviewed the patient's lab results. Labs: Laboratory Results - last 24 hr 08/04/21 08/04/21 08/04/21 10:00 10:00 10:00 WBC 12.2 H RBC 4.71 Hgb 14.0 Hct 43.0 MCV 91.3 MCH 29.7 MCHC 32.6 RDW Std Deviation 41.4 RDW Coeff of Calin 12.3 Plt Count 207 MPV 9.4 Immature Gran % (Auto) 0.600 Neut % (Auto) 88.5 H Lymph % (Auto) 6.9 L [place] % (Auto) 3.7 Eos % (Auto) 0.1 Baso % (Auto) 0.2 Absolute Neuts (auto) 10.8 H Absolute Lymphs (auto) 0.84 Nucleated RBC % 0 PT 14.1 INR 1.1 APTT 37.0 H Sodium 139 Potassium 3.7 Chloride 104 Carbon Dioxide 28.0 Anion Gap 7 BUN 8 Creatinine 0.54 L Estim Creat Clear Calc 129.40 Est GFR (MDRD) Af Amer 170 Est GFR (MDRD) Non-Af 141 BUN/Creatinine Ratio 14.9 Glucose 92 Lactic Acid Calcium 8.0 L Total Bilirubin 0.60 AST 31 ALT 44 Alkaline Phosphatase 68 Total Protein 6.4 Albumin 2.9 L Globulin 3.5 Albumin/Globulin Ratio 0.8 L 08/04/21 10:00 WBC RBC Hgb Hct MCV MCH MCHC RDW Std Deviation RDW Coeff of Calin Plt Count MPV Immature Gran % (Auto) Neut % (Auto) Lymph % (Auto) Owen % (Auto) Eos % (Auto) Baso % (Auto) Absolute Neuts (auto) Absolute Lymphs (auto) Nucleated RBC % PT INR APTT Sodium Potassium Chloride Carbon Dioxide Anion Gap BUN Creatinine Estim Creat Clear Calc Est GFR (MDRD) Af Amer Est GFR (MDRD) Non-Af BUN/Creatinine Ratio Glucose Lactic Acid 1.5 Calcium Total Bilirubin AST ALT Alkaline Phosphatase Total Protein Albumin Globulin Albumin/Globulin Ratio Radiography Chest X-Ray - ED: 1 View, Read by ED Physician, Heart, Mediastinum, Bony Structures and Right Infiltrate (Right lower lobe most likely superior segment since it obscures the right heart border.) Diagnostic Testing: Clinical Impression(s) from Imaging Studies Chest X-Ray 08/04/21 10:19 IMPRESSION: Focal infiltrate in the posterior medial segment of the right lower lobe. Mild degree of increased markings at the left lung base. Electronically Signed: Andrea Guerrero MD at 10:44 EDT , Rhythm Strip Rhythm Strip: Sinus Tach Rate: 122 Ectopy: None EKG Initial EKG: Attestation: I personally reviewed and interpreted this EKG as follows: Interpretation: Sinus Tachycardia (Ventricular rate is 122 and EKG is otherwise normal. NH interval is 142 ms. QS duration 74 ms. QT duration 3 and 10 ms. [place] is normal.) Discharge Plan Dx/Rx/DC Orders Clinical Impression: Right lower lobe pneumonia, Acute hypotension, SIRS (systemic inflammatory response syndrome), Sinus tachycardia Disposition Disposition: Acute Care Hospital [facility]
--- NOTE | 2021-08-04 09:41 | NURSING ---
FAXED RELEASE OF INFO TO [facility]
[2021-08-04 10:17] LABS: Absolute Lymphocyte Count 0.84 X10^3/uL (0.83-4.51); Absolute Neutrophil Count 10.8 X10^3/uL (2.0-7.7); Basophil# 0.03 X10^3/uL; Basophil% 0.2 % (0-1); Eosinophil# 0.01 X10^3/uL; Eosinophils% 0.1 % (0-5); Lymphocyte # 0.84 X10^3/ul (0.83-4.51); Lymphocyte % 6.9 % (19-41); Mean Corp Hgb Conc 32.6 g/dL (32-36); Mean Corpuscular Hgb 29.7 pg (27.0-32.0); Mean Corpuscular Volume 91.3 fL (81-99); Mean Platelet Vol. 9.4 fl (6.2-12.0); Monocyte# 0.45 X10^3/uL; Monocyte% 3.7 % (0-10); NRBC Flagged by Analyzer 0 % (0-5); Neutrophil # 10.75 X10^3/uL (2.7-7.7); Neutrophil % 88.5 % (47-70); POSITIVE MORPHOLOGY YES; Platelet Count 207 K/mm3 (150-450); RBC Distribution Width CV 12.3 % (11.6-14.6); RBC Distribution Width SD 41.4 fl (35.1-43.9); Red Blood Count 4.71 M/mm3 (4.2-5.4); White Blood Count 12.2 K/mm3 (4.4-11.0)
--- NOTE | 2021-08-04 10:19 | RAD_ITS ---
STUDY: X-RAY CHEST REASON FOR EXAM: Female, 31 years old. Fever, cough, rales right lower lobe TECHNIQUE: Single AP portable view of the chest. COMPARISON: None. FINDINGS: Focal infiltrate in the posterior medial segment of the right lower lobe. Minimal increased markings at the left lung base as well. There is no demonstrated pleural abnormality. Normal size heart. Normal mediastinum and master. Normal visualized pulmonary arteries. Normal visualized aortic arch and descending thoracic aorta. Normal visualized thoracic spine. Normal visualized ribs, clavicles, and shoulders. There is no demonstrated abnormality of the visualized soft tissue structures of the upper abdomen. RAD/Chest 1 View (Portable) IMPRESSION: Focal infiltrate in the posterior medial segment of the right lower lobe. Mild degree of increased markings at the left lung base. Electronically Signed: Andrea Guerrero MD at 10:44 EDT ,
[2021-08-04 10:20] LABS: Differential Indicated SCAN CRITERIA MET
[2021-08-04 10:28] LABS: International Normalized Ratio 1.1; Prothrombin Time (Protime)PT. 14.1 SECONDS (11.7-14.9)
[2021-08-04 10:34] LABS: ALB/GLOB Ratio 0.8 RATIO (0.9-2.4); AST(SGOT) 31 U/L (15-37); Alanine Aminotransfer ALT/SGPT 44 U/L (13-56); Albumin, Serum 2.9 g/dL (3.2-5.0); Alkaline Phosphatase 68 U/L (45-117); Anion Gap 7 (5-15); BUN 8 mg/dL (7-18); BUN/Creat Ratio 14.9 RATIO (10-20); Chloride 104 mmol/L (98-107); Creatinine, Serum 0.54 mg/dL (0.55-1.02); EST Glomerular Filtration Rate 141 mL/min (>60); Est Glom Filt Rate - Afr Amer 170 mL/min (>60); Globulin 3.5 g/dL (2.2-4.2); Glucose 92 mg/dL (74-106); Potassium 3.7 mmol/L (3.5-5.1); Protein, Total 6.4 g/dL (6.4-8.2); Sodium Level 139 mmol/L (136-145)
[2021-08-04] MEDS: 0.9% Normal Saline 1,000 ML 999 ML IV ×2 (10:35→11:36)
[2021-08-04] MEDS: levoFLOXacin IV 750 MG/150 ML BAG 100 MG IV (10:35)
[2021-08-04 10:56] LABS: Lactic Acid 1.5 mmol/L (0.4-1.9)
--- NOTE | 2021-08-04 11:48 | NURSING ---
PCU JOWILLISERI CAP, RLL, HYPOTENSION
--- NOTE | 2021-08-04 12:24 | HP.PCM.HOS_ITS ---
HPI - General General Date of Admission: 08/04/21 HPI Narrative RAQUEL MARIO, is a 31 F who presents with chest pain. Patient was seen in outside emergency room yesterday and diagnosed with pneumonia and received antibiotics. Just felt worse and presented with hypotension with blood pressure of 84/57. Patient did receive a liter of IV fluids and her blood pressure did improve but was tachycardic. Patient had chest x-ray that was consistent with pneumonia and patient did receive center 50 mg of levofloxacin. Patient states that she had COVID-19 at some point in 2020. She is unvaccinated for COVID-19. COVID-19 as well as influenza is currently pending. Patient complains of pain in her shoulder that hurts taking a deep breath. Denies any history of VTE. States she stopped smoking yesterday. [facility] Medical History Anxiety Asthma Chlamydia PID (acute pelvic inflammatory disease) Seizures Home Medications NK 08/04/21 [History Last Taken Unknown] Allergy/AdvReac Type Severity Reaction Status Date / Time Penicillins Allergy Swelling Verified 08/04/21 09:13 shellfish derived Allergy Swelling Verified 08/04/21 09:13 Surgical History History of gynecologic surgery Hx of tonsillectomy Social History (Updated 08/04/21 @ 12:[address] Kyle Dewey DO) household members: children Smoking Status: Current every day smoker tobacco type: cigarettes alcohol intake: never substance use type: does not use ROS ROS Narrative Complains of a sore throat. Not eating or drinking much. Denies any dysuria. All review of systems were negative except as mentioned above in the history of present illness and the other review of systems. Vital Signs Vital Signs Vital Signs: 08/04/21 09:14 08/04/21 09:18 08/04/21 09:27 Temperature 37.9 C H Temperature Source Temporal Pulse Rate 129 H 128 H Respiratory Rate 18 Respiratory Effort Normal Non-Labored Respiratory Depth Shallow Respiratory Pattern Tachypnea Blood Pressure 84/57 L 91/62 Blood Pressure Mean 66 71 Pulse Ox 100 Oxygen Delivery Method Room Air 08/04/21 10:24 08/04/21 10:33 08/04/21 11:00 Temperature 37.7 C H 37.4 C H Temperature Source Temporal Oral Pulse Rate 119 H 124 H Respiratory Rate 24 H 26 H Respiratory Effort Respiratory Depth Respiratory Pattern Blood Pressure 99/64 106/70 Blood Pressure Mean 75 82 Pulse Ox 99 99 99 Oxygen Delivery Method Room Air Room Air Room Air 08/04/21 11:23 08/04/21 11:26 08/04/21 12:00 Temperature 37.2 C 37.2 C Temperature Source Oral Oral Pulse Rate 124 H 120 H Respiratory Rate 24 H 35 H Respiratory Effort Respiratory Depth Respiratory Pattern Blood Pressure 106/70 100/71 Blood Pressure Mean 82 80 Pulse Ox 98 98 Oxygen Delivery Method Room Air Room Air 08/04/21 12:04 Temperature 37.2 C Temperature Source Oral Pulse Rate 120 H Respiratory Rate 35 H Respiratory Effort Respiratory Depth Respiratory Pattern Blood Pressure 100/71 Blood Pressure Mean 80 Pulse Ox 98 Oxygen Delivery Method Room Air Weight Weight: 54.3 kg Body Mass Index (BMI) 20.5 Physical Exam Const alert and no apparent distress Constitutional Narrative: Anxious. Minimal eye contact. General Appearance: cooperative HEENT normocephalic, head/scalp atraumatic and hearing grossly normal bilaterally HEENT Narrative: Mucous membranes dry. Do not appreciate any thrush. Resp no retractions, no use of accessory muscles and clear to auscultation bilaterally Resp Narrative: Diminished respiratory effort Cardio Cardio Narrative: Tachycardic and regular GI normal to inspection, nondistended, normoactive bowel sounds, soft to palpation, non-tender and non-distended Extremity normal to inspection and full ROM Neuro oriented x3 Sensorium / Orientation: awake and alert Psych Mood & Affect: anxious Results Lab / Micro Data Attestation: I reviewed the patient's lab results. Result Diagrams: 08/04/21 10:00 08/04/21 10:00 Labs: Laboratory Results - last 24 hr 08/04/21 10:00: WBC 12.2 H, RBC 4.71, Hgb 14.0, Hct 43.0, MCV 91.3, MCH 29.7, MCHC 32.6, RDW Std Deviation 41.4, RDW Coeff of Calin 12.3, Plt Count 207, MPV 9.4, Immature Gran % (Auto) 0.600, Neut % (Auto) 88.5 H, Lymph % (Auto) 6.9 L, [place] % (Auto) 3.7, Eos % (Auto) 0.1, Baso % (Auto) 0.2, Absolute Neuts (auto) 10.8 H, Absolute Lymphs (auto) 0.84, Nucleated RBC % 0 08/04/21 10:00: PT 14.1, INR 1.1, APTT 37.0 H 08/04/21 10:00: Sodium 139, Potassium 3.7, Chloride 104, Carbon Dioxide 28.0, Anion Gap 7, BUN 8, Creatinine 0.54 L, Estim Creat Clear Calc 129.40, Est GFR (MDRD) Af Amer 170, Est GFR (MDRD) Non-Af 141, BUN/Creatinine Ratio 14.9, Glucose 92, Calcium 8.0 L, Total Bilirubin 0.60, AST 31, ALT 44, Alkaline Phosphatase 68, Total Protein 6.4, Albumin 2.9 L, Globulin 3.5, Albumin/Globulin Ratio 0.8 L 08/04/21 10:00: Lactic Acid 1.5 Rhythm Strip Rhythm Strip: Sinus Tach Rate: 122 Ectopy: None EKG Initial EKG: Attestation: I personally reviewed and interpreted this EKG as follows: Prior EKG tracings: available for review EKG Rhythm Intrepretation: Sinus Tachycardia Radiology Impression Chest X-Ray 08/04/21 10:19 IMPRESSION: Focal infiltrate in the posterior medial segment of the right lower lobe. Mild degree of increased markings at the left lung base. Electronically Signed: Andrea Guerrero MD at 10:44 EDT , Assessment & Plan Assessment/Plan (1) Sepsis: QUALIFIERS: Sepsis type: sepsis due to unspecified organism Sepsis acute organ dysfunction status: without acute organ dysfunction Qualified Code(s): A41.9 - Sepsis, unspecified organism (2) Right lower lobe pneumonia: QUALIFIERS: Pneumonia type: due to Pneumococcus Qualified Code(s): J13 - Pneumonia due to Streptococcus pneumoniae (3) Acute hypotension: (4) Sinus tachycardia: PLAN: 1. Sepsis * Present on arrival * qSOFA of 2 * Secondary to likely pneumonia * Follow-up blood cultures which is already been drawn. Check urinalysis and urine culture. * Rapid COVID and flu were negative 2. Suspected pneumococcal pneumonia * Patient received levofloxacin the emergency room and will continue * Check sputum culture * Check urinary antigens for Streptococcus and Legionella 3. Hypotension * Resolved with a liter of fluids * Patient still tachycardic * Given her chest pain, the transient hypotension and ongoing tachycardia, will check a CT angiogram of the chest to evaluate for pulmonary embolism 4. Chest pain * Atypical * patient complains of being in the right shoulder which is certainly atypical. I am not concerned about acute coronary syndrome but will cycle troponins and check a CT angiogram of the chest. * If it is showing that she is having acute coronary syndrome then would consult cardiology 5. VTE prophylaxis with low molecular 8 heparin. Charges/Coding Visit Charges Inpatient E&M: 86764 Init Hosp L3
--- NOTE | 2021-08-04 12:44 | CT_ITS ---
STUDY: CTA CHEST REASON FOR EXAM: Female, 31 years old. Shortness of breath. Chest pain. RADIATION DOSAGE (If Supplied By Facility): CTDIvol = ( 4.36 ) mGy, DLP = ( 123.00 ) mGycm TECHNIQUE: The examination was performed with the intravenous administration of IV 100mL Isovue-370. Post-processing of the angiographic images was performed, with multiplanar reformation and 3D reconstruction. Individualized dose optimization techniques were used for this CT. COMPARISON: Comparison is made with prior chest radiograph done earlier today. FINDINGS: Normal enhancement of the main pulmonary artery and right and left pulmonary arteries. Normal enhancement of the bilateral peripheral pulmonary arteries. There is no demonstrated pulmonary embolism. Normal thoracic aorta and visualized great vessels. There is no demonstrated aortic dissection. Normal heart and pericardium. Normal mediastinum. Normal hilar regions. Normal visualized trachea and bronchi. The lungs are well expanded. Dense consolidation in the medial aspect of the right middle lobe. Radiographic follow-up is recommended. Minimal right pleural effusion. Normal chest wall structures. Normal osseous structures. Normal visualized upper abdomen. CT/CTA Chest W/WO Contrast IMPRESSION: Dense consolidation in the right middle lobe. Radiographic follow-up is recommended. Electronically Signed: Andrea Guerrero MD at 13:27 EDT ,
[2021-08-04 13:21] LABS: Troponin-I HS < 3 pg/mL (3.0-54.0)
[2021-08-04] MEDS: 0.9% Normal Saline 1,000 ML 150 ML IV (13:45)
[2021-08-04 14:00] LABS: Troponin-I HS < 3 pg/mL (3.0-54.0)
[2021-08-04] MEDS: 0.9% Saline Lock 10 ML Syringe IV ×2 (14:18→21:38)
[2021-08-04] MEDS: Ketorolac 15 MG/ML Vial IV ×2 (14:18→21:39)
[2021-08-04] MEDS: guaiFENesin 1,200 MG Tablet 1200 MG PO (21:40)
[2021-08-05] VITALS (9 sets, daily range): BP systolic 91–106; BP diastolic 59–72; PULSE 92–108; RESP 16–18; TEMP 36.6–37.1; O2SAT 94–99
[2021-08-05 06:43] LABS: Absolute Neutrophil Count 9.4 X10^3/uL (2.0-7.7); Basophil# 0.01 X10^3/uL; Basophil% 0.1 % (0-1); Eosinophil# 0.04 X10^3/uL; Eosinophils% 0.4 % (0-5); Hematocrit 34.5 % (37-47); Hemoglobin 11.6 g/dL (12.0-15.0); Lymphocyte % 10.8 % (19-41); Mean Corp Hgb Conc 33.6 g/dL (32-36); Mean Corpuscular Hgb 30.1 pg (27.0-32.0); Mean Corpuscular Volume 89.4 fL (81-99); Mean Platelet Vol. 9.2 fl (6.2-12.0); Monocyte# 0.42 X10^3/uL; Monocyte% 3.8 % (0-10); NRBC Flagged by Analyzer 0 % (0-5); Neutrophil % 84.1 % (47-70); POSITIVE MORPHOLOGY YES; Platelet Count 168 K/mm3 (150-450); RBC Distribution Width CV 12.5 % (11.6-14.6); Red Blood Count 3.86 M/mm3 (4.2-5.4); White Blood Count 11.2 K/mm3 (4.4-11.0)
[2021-08-05] MEDS: Ketorolac 15 MG/ML Vial IV (07:02)
[2021-08-05 07:09] LABS: Differential Indicated SCAN CRITERIA MET
[2021-08-05 07:11] LABS: ALB/GLOB Ratio 0.7 RATIO (0.9-2.4); AST(SGOT) 17 U/L (15-37); Alanine Aminotransfer ALT/SGPT 30 U/L (13-56); Albumin, Serum 2.3 g/dL (3.2-5.0); Alkaline Phosphatase 64 U/L (45-117); Anion Gap 6 (5-15); BUN 11 mg/dL (7-18); BUN/Creat Ratio 29.9 RATIO (10-20); Calcium,Total 7.7 mg/dL (8.5-10.1); Chloride 109 mmol/L (98-107); Creatinine, Serum 0.37 mg/dL (0.55-1.02); EST Glomerular Filtration Rate 217 mL/min (>60); Est Glom Filt Rate - Afr Amer 263 mL/min (>60); Estimated Creatinine Clearance 190.24 ml/min; Globulin 3.2 g/dL (2.2-4.2); Glucose 83 mg/dL (74-106); Potassium 3.1 mmol/L (3.5-5.1); Protein, Total 5.5 g/dL (6.4-8.2); Sodium Level 138 mmol/L (136-145)
[2021-08-05] MEDS: levoFLOXacin IV 750 MG/150 ML BAG 100 MG IV (08:47)
[2021-08-05] MEDS: Potassium Chloride Oral Tablet 20 MEQ 60 MEQ PO (08:47)
[2021-08-05] MEDS: 0.9% Saline Lock 10 ML Syringe IV (08:48)
--- NOTE | 2021-08-05 11:41 | PN.HOSP_ITS ---
Subjective Subjective Patient seen and examined. She had no active complaints. She said she was feeling tired. She is still coughing and says it is occasionally productive. Review of systems is otherwise negative. Bp is running at 96/59.Potassium is 3.1. Objective Data Objective Data Vital Signs: Vital Signs Temp Pulse Resp BP Pulse Ox 98.5 F 98 17 96/59 L 98 08/05/21 08:32 08/05/21 08:32 08/05/21 08:32 08/05/21 08:32 08/05/21 08:32 Oxygen Delivery Method Room Air Weight: 121 lb 0.54 oz Body Mass Index (BMI) 20.7 Intake & Output: Intake and Output for Last 24 Hours 08/03/21 08/04/21 08/05/21 23:59 23:59 23:59 Intake Total 3270 / 3270 150 / 150 Balance 3270 / 3270 150 / 150 Lab / Micro Data Result Diagrams: 08/05/21 06:34 08/05/21 06:34 Labs: Laboratory Results - last 24 hr 08/04/21 10:00: Troponin I High Sens < 3 L 08/04/21 13:23: Troponin I High Sens < 3 L 08/05/21 06:34: WBC 11.2 H, RBC 3.86 L, Hgb 11.6 L, Hct 34.5 L, MCV 89.4, MCH 30.1, MCHC 33.6, RDW Std Deviation 41.0, RDW Coeff of Calin 12.5, Plt Count 168, MPV 9.2, Immature Gran % (Auto) 0.800, Neut % (Auto) 84.1 H, Lymph % (Auto) 10.8 L, [place] % (Auto) 3.8, Eos % (Auto) 0.4, Baso % (Auto) 0.1, Absolute Neuts (auto) 9.4 H, Absolute Lymphs (auto) 1.20, Nucleated RBC % 0 08/05/21 06:34: Sodium 138, Potassium 3.1 L, Chloride 109 H, Carbon Dioxide 23.0 , Anion Gap 6, BUN 11, Creatinine 0.37 L, Estim Creat Clear Calc 190.24, Est GFR (MDRD) Af Amer 263, Est GFR (MDRD) Non-Af 217, BUN/Creatinine Ratio 29.9 H, Glucose 83, Calcium 7.7 L, Total Bilirubin 0.50, AST 17, ALT 30, Alkaline Phosphatase 64, Total Protein 5.5 L, Albumin 2.3 L, Globulin 3.2, Albumin/Globulin Ratio 0.7 L Micro: Microbiology 08/04/21 11:55 Nasal Secretion SARS-CoV-2 & FLU Antigen (Rapid) - Final Radiography Diagnostic Testing: Radiology Impression Chest CTA 08/04/21 12:44 IMPRESSION: Dense consolidation in the right middle lobe. Radiographic follow-up is recommended. Electronically Signed: Andrea Guerrero MD at 13:27 EDT , Rhythm Strip Rhythm Strip: Sinus Tach Rate: 122 Ectopy: None Physical Exam Const alert, oriented x3 and no apparent distress Exam Limitations: no limitations HEENT head/scalp atraumatic and moist oral mucous membranes Head and Scalp: normocephalic Neck no lymphadenopathy Resp normal respiratory effort Resp Narrative: mildly diminished breath sounds bibasally, no wheezes or crackles. on room air. Cardio regular rate, regular rhythm, S1 normal heart sound, S2 normal heart sound and no murmurs GI normal to inspection, nondistended, normoactive bowel sounds, soft to palpation, non-tender and non-distended Extremity normal to inspection, full ROM and no clubbing, cyanosis or edema Peripheral Pulses: Yes pulses 2+ throughout Skin no rashes or lesions noted Neuro oriented x3, CN's II-XII intact bilaterally and moves all extremities Sensorium / Orientation: awake and alert Psych affect normal Assessment & Plan Assessment/Plan (1) Sepsis: QUALIFIERS: Sepsis type: sepsis due to unspecified organism Sep sis acute organ dysfunction status: without acute organ dysfunction Qualified Code(s): A41.9 - Sepsis, unspecified organism (2) Right lower lobe pneumonia: QUALIFIERS: Pneumonia type: due to Pneumococcus Qualified Code(s): J13 - Pneumonia due to Streptococcus pneumoniae (3) Acute hypotension: PLAN: #Sepsis due to community acquired pneumonia * currently on room air * on IV levaquin * urine for strep and legionella are negative * blood and sputum cultures pending * wbc is 11.2 * #Hypotension * BP still remains in the 90s systolic. * CTA of the chest was negative for any PE and showed a right middle lobe consolidation * continue gentle hydration with IVF * #Hypokalemia: K is 3.1. Will replace and trend. DVT prophylaxis: lovenox Charges/Coding Visit Charges Inpatient E&M: 21837 Subs Hosp L3
--- NOTE | 2021-08-05 11:55 | CASEMGMT ---
MORGAN FRANCO Face to Face with patient for initial transition planning/care coordination assessment. RN JOAN introduced self and role at [facility]. Patient lying in bed, alert and oriented. Patient willing to participate in assessment and is able to answer all questions appropriately. Care providers, pharmacy, and demographics verified. Patient wishes to discharge home, denies need for home health at this time. Patient states she has no further needs or concerns at this time. CM to follow for discharge planning needs that may arise. PCP: Kavya Specialists: none Preferred Pharmacy: [facility] Insurance: [facility] Prescription Benefit: yes Living Will/HPOA: none LNOK: father Living Arrangements: Patient lives with roommate in a 2 story home. Patient states she is independent and able to ambulate stairs. Transportation: self, roommate DME/HHC: Patient denies DME or HHC. No preferences for DME. Disposition Plan: Patient to discharge home with family support and follow-up plans in place. Will monitor for home oxygen at discharge. Pooja ELIZONDO, RN, CM
[2021-08-05] MEDS: guaiFENesin 1,200 MG Tablet 1200 MG PO ×2 (12:05→21:22)
[2021-08-05] MEDS: Enoxaparin 40 MG/0.4 ML Syringe SC (12:05)
[2021-08-05 20:09] LABS: Bacteria 0 SEEN /hpf (None Seen); Mucous, Urine 0 SEEN /hpf (<or=2+); Red Blood Cells-Urine 0 SEEN /hpf (0-5)
[2021-08-05 20:14] LABS: Color, Urine Yellow (Yellow); Glucose, Dipstick Normal (Normal); Ketone-Dipstick 50 mg/dl (Negative); Leukocyte Esterase-Dipstick 25 /ul (Negative); Nitrite-Dipstick Negative (Negative); Occult Blood-Urine Negative /ul (Negative); Protein-Dipstick 15 mg/dl (Negative); Urine Bilirubin Dipstick Negative (Negative); Urine Clarity Clear (Clear); Urine Urobilinogen 4 mg/dl (Normal)
[2021-08-05 20:18] LABS: Internal QC Validated? YES +Cl - CLEAR BKGD; Pregnancy, Urine Negative Negative
[2021-08-05 20:22] LABS: Squamous Epithelial Cells - UA 0-5 SEEN /hpf (5-10); White Blood Cells 0-5 SEEN /hpf (0-5)
[2021-08-06 03:24] VITALS: BP 110/76; PULSE 103; RESP 18; TEMP 36.8; O2SAT 99
[2021-08-06] MEDS: Ipratropium/Albuterol Sulfate 3 ML AMPUL.NEB INHALATION ×2 (03:30→07:31)
[2021-08-06 03:31] VITALS: PULSE 96; RESP 18
[2021-08-06 06:46] LABS: Absolute Lymphocyte Count 1.14 X10^3/uL (0.83-4.51); Absolute Neutrophil Count 7.2 X10^3/uL (2.0-7.7); Basophil# 0.01 X10^3/uL; Basophil% 0.1 % (0-1); Eosinophil# 0.07 X10^3/uL; Eosinophils% 0.8 % (0-5); Hemoglobin 11.8 g/dL (12.0-15.0); Lymphocyte # 1.14 X10^3/ul (0.83-4.51); Lymphocyte % 12.9 % (19-41); Mean Corp Hgb Conc 33.7 g/dL (32-36); Mean Corpuscular Hgb 30.3 pg (27.0-32.0); Mean Corpuscular Volume 89.7 fL (81-99); Mean Platelet Vol. 9.6 fl (6.2-12.0); Monocyte# 0.37 X10^3/uL; Monocyte% 4.2 % (0-10); NRBC Flagged by Analyzer 0 % (0-5); Neutrophil # 7.21 X10^3/uL (2.7-7.7); Neutrophil % 81.3 % (47-70); Platelet Count 219 K/mm3 (150-450); RBC Distribution Width CV 12.3 % (11.6-14.6); RBC Distribution Width SD 40.9 fl (35.1-43.9); White Blood Count 8.9 K/mm3 (4.4-11.0)
[2021-08-06 07:07] LABS: Anion Gap 7 (5-15); BUN 7 mg/dL (7-18); BUN/Creat Ratio 19.8 RATIO (10-20); Chloride 108 mmol/L (98-107); Creatinine, Serum 0.35 mg/dL (0.55-1.02); EST Glomerular Filtration Rate 227 mL/min (>60); Est Glom Filt Rate - Afr Amer 275 mL/min (>60); Estimated Creatinine Clearance 201.11 ml/min; Glucose 94 mg/dL (74-106); Potassium 3.5 mmol/L (3.5-5.1); Sodium Level 139 mmol/L (136-145)
[2021-08-06 07:31] VITALS: PULSE 107; RESP 20
[2021-08-06 08:40] VITALS: BP 103/63; PULSE 107; RESP 14; TEMP 36.6; O2SAT 97
[2021-08-06] MEDS: guaiFENesin 1,200 MG Tablet 1200 MG PO (08:40)
[2021-08-06] MEDS: levoFLOXacin IV 750 MG/150 ML BAG 100 MG IV (08:40)
--- NOTE | 2021-08-06 10:43 | PCM.DC ---
Discharge Instructions Follow Up Care Test Results: Test results from this visit will be discussed in further detail at your follow-up appointment, if applicable. Discharge Plan Admission Admit Date/Time: 08/04/21 12:14 Primary Reason for Your Visit: community acquired pneumonia Attending Provider: Zuleima Sanchez Primary Care Provider: Brett Hoff Consulting Providers: Kyle Dewey Instructions Patient Instructions: ED Pneumonia (Adult) Discharge Orders/Prescriptions Prescriptions: New levofloxacin 750 mg tablet 750 mg PO DAILY Qty: 5 RF: 0 guaifenesin 1,200 mg tablet extended release 12hr 1,200 mg PO Q12H Qty: 30 RF: 0 Referrals / Follow Up: Brett Hoff MD [Primary Care Provider] - Within 2 Weeks Disposition Disposition (needs filled in before D/C Order can be placed): Home, Self Care
--- NOTE | 2021-08-06 10:44 | PCM.DC.SUM ---
Providers Date of Admission: 08/04/21 Primary Care Physician: Dr. Brett Hoff MD Reason For Visit: PNEUMONIA Diagnosis Discharge Diagnosis (1) Sepsis: Status: Acute Code(s): A41.9 - Sepsis, unspecified organism Qualifiers: Sepsis type: sepsis due to unspecified organism Sepsis acute organ dysfunction status: without acute organ dysfunction Qualified Code(s): A41.9 - Sepsis, unspecified organism (2) Right lower lobe pneumonia: Status: Acute Code(s): J18.9 - Pneumonia, unspecified organism Qualifiers: Pneumonia type: due to Pneumococcus Qualified Code(s): J13 - Pneumonia due to Streptococcus pneumoniae (3) Acute hypotension: Status: Acute Code(s): I95.9 - Hypotension, unspecified Medications at Discharge Home Medications guaifenesin 1,200 mg PO Q12H #30 tab 08/06/21 levofloxacin 750 mg PO DAILY #5 tab 08/06/21 Hospital Course Operations None Procedures None Summary of Care Provided Minutes Spent on Discharge: 45 Hospital Course: Patient is a 31 y/o female with a PMh as outlined who was admitted with a complaint of chest pain. She was seen in an outside ER yesterday and diagnosed with pneumonia and placed on oral antibiotics. Howevere, she felt worse and so came back to the ED where she was found to be hypotensive. Chest xray done showed evidence of pneumonia. She was admitted and managed for sepsis due to community acquired pneumonia. COVID test was negative. Urine for strep and legionella were negative. CTA of the chest was negative for any evidence of PE. Hypotension resolved with IVF. Her symptoms resolved and she felt much better. She remained stable and was discharged home on 08/06/2021 on PO levofloxacin 750mg daily x 5 days. Patient seen and examined. She had no complaints and had an uneventful night. Review of systems is otherwise negative. Labs and vitals reviewd. Home meds reviewed and reconciled. Physical Exam Const alert, oriented x3 and no apparent distress Constitutional Narrative: Anxious. Minimal eye contact. General Appearance: cooperative and comfortable Exam Limitations: no limitations HEENT normocephalic, head/scalp atraumatic, hearing grossly normal bilaterally and moist oral mucous membranes Eyes PERRL and EOMs intact bilaterally Neck no lymphadenopathy Resp normal respiratory effort, no retractions, no use of accessory muscles and clear to auscultation bilaterally Resp Narrative: mildly diminished breath sounds bibasally, no wheezes or crackles. on room air. Cardio regular rate, regular rhythm, S1 normal heart sound, S2 normal heart sound and no murmurs Cardio Narrative: Tachycardic and regular GI normal to inspection, nondistended, normoactive bowel sounds, soft to palpation, non-tender and non-distended Extremity normal to inspection, full ROM and no clubbing, cyanosis or edema Skin no rashes or lesions noted Neuro oriented x3, CN's II-XII intact bilaterally and moves all extremities Sensorium / Orientation: awake and alert Psych affect normal Weight / BMI Weight Weight: 121 lb 0.54 oz Body Mass Index (BMI) 20.7 ABG / Lab / Microbiology Data Result Diagrams: 08/06/21 06:17 08/06/21 06:17 Laboratory: Laboratory Results - last 24 hr 08/05/21 06:38: Urine Color Yellow, Urine Clarity Clear, Urine pH 6.0, Ur Specific [place] 1.020, Urine Protein 15 H, Urine Glucose (UA) Normal, Urine Ketones 50 H, Urine Occult Blood Negative, Urine Nitrite Negative, Urine Bilirubin Negative, Urine Urobilinogen 4 H, Ur Leukocyte Esterase 25 H, Urine RBC 0 SEEN, Urine WBC 0-5 SEEN, Ur Squamous Epith Cells 0-5 SEEN, Urine Bacteria 0 SEEN, Urine Mucus 0 SEEN, Urine Test Negative 08/06/21 06:17: WBC 8.9, RBC 3.90 L, Hgb 11.8 L, Hct 35.0 L, MCV 89.7, MCH 30.3, MCHC 33.7, RDW Std Deviation 40.9, RDW Coeff of Calin 12.3, Plt Count 219, MPV 9.6, Immature Gran % (Auto) 0.700, Neut % (Auto) 81.3 H, Lymph % (Auto) 12.9 L, [place] % (Auto) 4.2, Eos % (Auto) 0.8, Baso % (Auto) 0.1, Absolute Neuts (auto) 7.2, Absolute Lymphs (auto) 1.14, Nucleated RBC % 0 08/06/21 06:17: Sodium 139, Potassium 3.5, Chloride 108 H, Carbon Dioxide 24.0, Anion Gap 7, BUN 7, Creatinine 0.35 L, Estim Creat Clear Calc 201.11, Est GFR (MDRD) Af Amer 275, Est GFR (MDRD) Non-Af 227, BUN/Creatinine Ratio 19.8, Glucose 94, Calcium 8.0 L Microbiology: Microbiology 08/05/21 06:38 Urine, Clean Catch Urine Culture - Preliminary Culture exhibits no growth. 08/04/21 10:15 Blood Culture (Wb) - Anticubital Left Blood Culture - Preliminary No growth in 48 hours. 08/04/21 10:00 Blood Culture (Wb) - Anticubital Left Blood Culture - Preliminary No growth in 48 hours. 08/05/21 06:38 Urine, Clean Catch Legionella Antigen - Final 08/05/21 06:38 Urine, Clean Catch Streptococcus pneumoniae Antigen (M - Final 08/04/21 11:55 Nasal Secretion SARS-CoV-2 & FLU Antigen (Rapid) - Final D/C Instructions Discharge Diet: No restrictions Discharge Activity: Return to Normal Activity Weight Bearing Status: Weight bearing as tolerated Call your doctor if you observe: Fever of 101 or Higher, Shortness of breath, Dizziness and Swelling in the ankles Meaningful Use Info Meaningful Use Diagnoses (Choose all that apply): None applicable Discharge Plan Admission Admit Date/Time: 08/04/21 12:14 Primary Reason for Your Visit: community acquired pneumonia Attending Provider: Zuleima Sanchez Primary Care Provider: Brett Hoff Consulting Providers: Kyle Dewey Instructions Patient Instructions: ED Pneumonia (Adult) Discharge Orders/Prescriptions Prescriptions: New levofloxacin 750 mg tablet 750 mg PO DAILY Qty: 5 RF: 0 guaifenesin 1,200 mg tablet extended release 12hr 1,200 mg PO Q12H Qty: 30 RF: 0 Referrals / Follow Up: Brett Hoff MD [Primary Care Provider] - Within 2 Weeks Disposition Disposition (needs filled in before D/C Order can be placed): Home, Self Care Charges/Coding Visit Charges Inpatient E&M: 44814 Disch Hosp
== END 2021-08-06 11:04 | disposition home or self-care (01) | DRG 139 ==
LOC: ED 11:10 → PCU 12:45
PROVIDERS: Emergency Provider Emergency Medicine; PCP Family Medicine; Visit Provider Student in an Organized Health Care Education/Training Program
DX: J13 Pneumonia due to Streptococcus pneumoniae (principal); E87.6 Hypokalemia; I95.9 Hypotension, unspecified; J45.909 Unspecified asthma, uncomplicated; F17.210 Nicotine dependence, cigarettes, uncomplicated; M25.511 Pain in right shoulder; Z28.310 Unvaccinated for COVID-19; Z20.822 Contact with and (suspected) exposure to COVID-19; Z86.16 Personal history of COVID-19; Z87.891 Personal history of nicotine dependence
CPT/HCPCS: 36415; 71045; 71275; 80048; 80053; 81001; 81025; 83605; 84484; 85025; 85610; 85730; 87040; 87086; 87428; 87449; 93005; 94640; 94667; 94668; 97802; 99284; 99406; J7030; J7050; Q9967; A4216

== ENCOUNTER 2021-09-25 11:15 | Emergency (ER) | payer MEDICAID, SELFPAY ==
[2021-09-25 11:16] VITALS: BP 102/65; PULSE 144; RESP 22; TEMP 37.4; O2SAT 98; BMI 20.5
--- NOTE | 2021-09-25 12:20 | EDS_ITS ---
HPI History of Present Illness Chief Complaint: General Illness Informant: patient Onset/Context/Timing Onset: Weeks (1) Context: Gradual Onset Timing: Continuous Quality: Sharp Location: Upper back and bilateral ears Worsened by: Nothing Relieved by: Nothing Narrative Narrative: Patient presents with decreased hearing from her ears and upper back pain that has been getting worse for the past week. Patient states it is gradually getting worse. Patient is concerned because she had similar symptoms with pneumonia in the past. Patient states this is different in that it does not hurt to breathe at this time. Patient states she is having difficulty hearing out of both ears. Patient admits to some pain in both ears. Patient states nothing makes her symptoms better and nothing makes them worse. Patient admits to a diffuse headache. Prior similar symptoms: Yes Recent Illness/Hospitalization: No PFSH PFSH Medical History Anxiety Asthma Chlamydia PID (acute pelvic inflammatory disease) Seizures Home Medications bajqooox-zukbta-KC-[id number] 3.3 mg-3 mg-10 mg-0.5 mg/mL ear drops,susp (Cortisporin-TC) 4 drp EACH EAR TID #10 mL 09/25/21 [Rx Last Taken Unknown] Allergy/AdvReac Type Severity Reaction Status Date / Time Penicillins Allergy Swelling Verified 09/25/21 11:16 shellfish derived Allergy Swelling Verified 09/25/21 11:16 Surgical History History of gynecologic surgery Hx of tonsillectomy Social History household members: children Smoking Status: Current every day smoker tobacco type: cigarettes alcohol intake: never substance use type: does not use ROS ROS ED Constitutional Constitutional ED: Denies chills or fever(s) Eyes Eyes: Denies blurry vision or change in vision ENT ENT ED: Reports ear pain bilateral; Denies rhinorrhea or sore throat Cardiovascular Cardiovascular: Denies chest pain or palpitations Respiratory/Chest Respiratory/Chest: Denies cough or dyspnea Gastrointestinal Gastrointestinal: Denies nausea or vomiting Genitourinary Genitourinary ED: Denies dysuria or hematuria Musculoskeletal Musculoskeletal: Reports back pain; Denies neck pain Integumentary Denies abscess or rash Neurologic Neurologic: Reports headache(s); Denies weakness Allergic/Immunologic Allergic/Immunologic ED: Denies mouth swelling or urticaria EXAM Physical Exam Const Vital Signs: 09/25/21 11:16 09/25/21 12:38 09/25/21 12:38 Temperature 99.3 F H 99.3 F H Temperature Source Temporal Temporal Pulse Rate 144 H 144 H Respiratory Rate 22 H 22 H Respiratory Effort Normal Non-Labored Respiratory Pattern Normal Blood Pressure 102/65 102/65 Blood Pressure Mean 77 77 Pulse Ox 98 98 Oxygen Delivery Method Room Air Room Air Positive well nourished and well developed General Appearance ED: well developed and NAD HEENT Reports moist mucous membranes HEENT Narrative: The left tympanic membrane was occluded with cerumen. There did appear to be some edema of the external auditory canal. There is no discharge or drainage. The right external auditory canal was also mildly edematous. There is no cerumen noted on the right. The tympanic membrane on the right was clear. Negative for trauma or tenderness Neck supple and no JVD Resp normal respiratory effort and clear to auscultation bilaterally Cardio regular rate and regular rhythm GI normal to inspection, nondistended, normoactive bowel sounds and non-tender Extremity normal to inspection Neuro oriented x3, CN's II-XII intact bilaterally and no sensory deficits noted Sensorium / Orientation: alert Motor Exam: strength 5/5 throughout Psych mental status grossly normal Attitude: agitated MDM MDM MDM Narrative Medical decision making narrative: Patient was given IV fluids and Toradol here. CBC was within normal limits. Basic metabolic profile was within normal limits. COVID-19 rapid antigen was obtained and was negative. Influenza A and B swabs were obtained and were negative. Portable 1 view chest x-ray was obtained. On my interpretation, lung banuelos show mild persistent markings in the posterior medial segment of the right lower lobe. This was improved compared to previous x-ray. There is normal cardiac silhouette. Bony thorax is normal. There is no acute process noted. Radiologist also interpreted the x-ray and agrees. Patient was advised of her findings. Patient was advised that her ear pain is likely due to otitis externa. Patient was given prescription for Cortisporin otic suspension. Patient was instructed to take Tylenol or ibuprofen as needed for pain. Patient was instructed to follow-up with her primary care physician in 5 to 7 days. Patient understood and was agreeable with the plan. All questions were answered. Lab Data Attestation: I reviewed the patient's lab results. Labs: Laboratory Results - last 24 hr 09/25/21 09/25/21 12:35 12:35 WBC 7.2 RBC 4.91 Hgb 14.2 Hct 43.6 MCV 88.8 MCH 28.9 MCHC 32.6 RDW Std Deviation 38.6 RDW Coeff of Calin 11.8 Plt Count 399 MPV 8.4 Immature Gran % (Auto) 0.100 Neut % (Auto) 83.4 H Lymph % (Auto) 9.8 L [place] % (Auto) 5.4 Eos % (Auto) 1.0 Baso % (Auto) 0.3 Absolute Neuts (auto) 6.0 Absolute Lymphs (auto) 0.70 L Nucleated RBC % 0 Sodium 137 Potassium 4.0 Chloride 105 Carbon Dioxide 27.0 Anion Gap 5 BUN 16 Creatinine 0.58 Estim Creat Clear Calc 120.76 Est GFR (MDRD) Af Amer 155 Est GFR (MDRD) Non-Af 128 BUN/Creatinine Ratio 27.5 H Glucose 87 Calcium 9.2 Radiography Chest X-Ray - ED: 1 View, Read by ED Physician, Read by Radiologist and No Acute Disease Diagnostic Testing: Clinical Impression(s) from Imaging Studies Chest X-Ray 09/25/21 12:42 IMPRESSION: Mild persistent increased markings in the posterior medial segment of the right lower lobe. This has improved as compared to prior study. Electronically Signed: Andrea Guerrero MD at 12:53 EDT , Discharge Plan Triage Chief Complaint: General Illness ED Provider: Kyle Harris Dx/Rx/DC Orders Clinical Impression: Acute otitis externa of both ears, Generalized body aches Instructions: ED External Ear Infection (Adult) Prescriptions: New Cortisporin-TC 3.3-3-10-0.5 mg/mL drops,suspension 4 drp EACH EAR TID Qty: 10 0RF Primary Care Provider: Brett Hoff Referrals: Brett Hoff MD [Primary Care Provider] - 3-5 Days Disposition Disposition: Home, Self Care
[2021-09-25] MEDS: Ketorolac 30 MG/ML Syringe IV (12:36)
[2021-09-25] MEDS: 0.9% Normal Saline 1,000 ML 1000 ML IV (12:36)
[2021-09-25 12:38] VITALS: BP 102/65; PULSE 144; RESP 22; TEMP 37.4; O2SAT 98
--- NOTE | 2021-09-25 12:42 | RAD_ITS ---
STUDY: X-RAY CHEST REASON FOR EXAM: Female, 31 years old. Back pain, cough TECHNIQUE: Single AP portable view of the chest. COMPARISON: Comparison is made with prior study of 08/04/2021. FINDINGS: Mild residual increased markings are seen in the posterior medial segment of the right lower lobe. This has improved as compared to prior study. There is no demonstrated pleural abnormality. Normal size heart. Normal mediastinum and master. Normal visualized pulmonary arteries. Normal visualized aortic arch and descending thoracic aorta. Normal visualized thoracic spine. Normal visualized ribs, clavicles, and shoulders. There is no demonstrated abnormality of the visualized soft tissue structures of the upper abdomen. RAD/Chest 1 View (Portable) IMPRESSION: Mild persistent increased markings in the posterior medial segment of the right lower lobe. This has improved as compared to prior study. Electronically Signed: Andrea Guerrero MD at 12:53 EDT ,
[2021-09-25 12:43] LABS: Basophil# 0.02 X10^3/uL; Basophil% 0.3 % (0-1); Eosinophil# 0.07 X10^3/uL; Hematocrit 43.6 % (37-47); Hemoglobin 14.2 g/dL (12.0-15.0); Lymphocyte % 9.8 % (19-41); Mean Corp Hgb Conc 32.6 g/dL (32-36); Mean Corpuscular Hgb 28.9 pg (27.0-32.0); Mean Corpuscular Volume 88.8 fL (81-99); Mean Platelet Vol. 8.4 fl (6.2-12.0); Monocyte# 0.39 X10^3/uL; Monocyte% 5.4 % (0-10); NRBC Flagged by Analyzer 0 % (0-5); Neutrophil # 5.98 X10^3/uL (2.7-7.7); Neutrophil % 83.4 % (47-70); Platelet Count 399 K/mm3 (150-450); RBC Distribution Width CV 11.8 % (11.6-14.6); RBC Distribution Width SD 38.6 fl (35.1-43.9); Red Blood Count 4.91 M/mm3 (4.2-5.4); White Blood Count 7.2 K/mm3 (4.4-11.0)
[2021-09-25 12:54] LABS: BUN 16 mg/dL (7-18); BUN/Creat Ratio 27.5 RATIO (10-20); Calcium,Total 9.2 mg/dL (8.5-10.1); Chloride 105 mmol/L (98-107); Creatinine, Serum 0.58 mg/dL (0.55-1.02); EST Glomerular Filtration Rate 128 mL/min (>60); Est Glom Filt Rate - Afr Amer 155 mL/min (>60); Estimated Creatinine Clearance 120.76 ml/min; Glucose 87 mg/dL (74-106); Sodium Level 137 mmol/L (136-145)
[2021-09-25 12:55] LABS: Anion Gap 5 (5-15)
[2021-09-25 13:52] VITALS: BP 121/77; PULSE 100; RESP 18; O2SAT 98
== END 2021-09-25 14:05 | disposition home or self-care (01) ==
PROVIDERS: Emergency Provider Emergency Medicine; PCP Family Medicine; Visit Provider Emergency Medicine
DX: H60.93 Unspecified otitis externa, bilateral (principal); H91.93 Unspecified hearing loss, bilateral; M54.9 Dorsalgia, unspecified; J45.909 Unspecified asthma, uncomplicated; F41.9 Anxiety disorder, unspecified; F17.210 Nicotine dependence, cigarettes, uncomplicated
CPT/HCPCS: 71045; 80048; 85025; 87428; 96361; 96374; 99284; J7030; A4216

== ENCOUNTER 2022-01-30 10:38 | Emergency (ER) | payer MEDICAID, SELFPAY ==
[2022-01-30 10:39] VITALS: BP 110/78; PULSE 118; RESP 20; TEMP 37.2; O2SAT 100; BMI 21.7
[2022-01-30] MEDS: Ketorolac 60 MG/2 ML Vial IM (11:17)
--- NOTE | 2022-01-30 11:35 | RAD_ITS ---
STUDY: X-RAY - LUMBAR SPINE REASON FOR EXAM: Female, 31 years old. Injury/Pain TECHNIQUE: 3 view(s) of the lumbar spine were obtained. COMPARISON: None FINDINGS: Normal lumbar lordosis. There is no substantial scoliosis. There is a normal alignment of the vertebrae. Normal vertebral bodies and endplates. Normal disc space heights. IUD is seen within the uterus. RAD/Lumbar Spine 2 or 3 Views IMPRESSION: Normal x-ray examination of the lumbar spine. Electronically Signed: Andrea Guerrero MD at 11:55 EST ,
--- NOTE | 2022-01-30 12:24 | EDS_ITS ---
HPI History of Present Illness Chief Complaint: Back Informant: patient Onset/Context/Timing Onset: Yesterday Context: Gradual Onset Timing: Continuous Quality: Sharp and Aching Location: Lumbar, Buttock, Right Leg and Left Leg Worsened by: improves with - (Sitting) Relieved by: Nothing Associated Symptoms Associated Symptoms: Radiation to Right Leg, Radiation to Left Leg and Abdominal Pain; Negative for Numbness, Tingling, Fever, Dysuria, Unable to Ambulate, Unable to Transfer, Urinary Retention, Urinary Incontinence, Constipation or Fecal Incontinence Narrative Narrative: Patient presents with back pain that began yesterday. Patient states it is gradually gotten worse. Patient denies any trauma or injury. Patient states the pain has been constant. Patient describes it as sharp and aching. Patient states that it is in her low back and radiates to both hips and both knees. Patient states the pain does radiate into her abdomen as well. Patient denies any dysuria or hematuria. Patient denies any incontinence of urine or stool. Patient denies any saddle anesthesia. Patient denies any paresthesias or weakness. Prior similar symptoms: Yes and With Prior Back Pain PFSH [facility] Medical History Anxiety Asthma Chlamydia History of back injury Hx of fracture of right hip PID (acute pelvic inflammatory disease) Seizures Home Medications cyclobenzaprine 10 mg tablet 10 mg PO QHS PRN PRN Muscle Spasm #10 TABLETS 01/30/22 [Rx Last Taken Unknown] naproxen 500 mg tablet 500 mg PO BID PRN #20 tabs 01/30/22 [Rx Last Taken Unknown] Allergy/AdvReac Type Severity Reaction Status Date / Time Penicillins Allergy Swelling Verified 01/30/22 10:39 shellfish derived Allergy Swelling Verified 01/30/22 10:39 Surgical History History of gynecologic surgery Hx of tonsillectomy Social History household members: children Smoking Status: Current every day smoker tobacco type: cigarettes alcohol intake: never substance use type: does not use ROS ROS ED Constitutional Constitutional ED: Denies chills or fever(s) Eyes Eyes: Denies blurry vision or change in vision ENT ENT ED: Denies rhinorrhea or sore throat Cardiovascular Cardiovascular: Denies chest pain or palpitations Respiratory/Chest Respiratory/Chest: Denies cough or dyspnea Gastrointestinal Gastrointestinal: Reports nausea and vomiting Genitourinary Genitourinary ED: Denies dysuria or hematuria Musculoskeletal Musculoskeletal: Reports back pain; Denies neck pain Integumentary Denies abscess or rash Neurologic Neurologic: Reports headache(s); Denies weakness Allergic/Immunologic Allergic/Immunologic ED: Denies mouth swelling or urticaria EXAM Physical Exam Const Vital Signs: 01/30/22 10:39 Temperature 99.0 F Temperature Source Temporal Pulse Rate 118 H Respiratory Rate 20 H Blood Pressure 110/78 Blood Pressure Mean 88 Pulse Ox 100 Oxygen Delivery Method Room Air Positive well nourished and well developed General Appearance ED: well developed and NAD Resp normal respiratory effort and clear to auscultation bilaterally Cardio regular rhythm Rate: tachycardic GI normal to inspection, nondistended, normoactive bowel sounds, soft to palpation and non-tender Back/Spine Back/Spine Narrative: There is tenderness over the lumbar spine and paraspinal muscles. There is no bony crepitance or step-off. There is no deformity noted. Range of motion was limited in all motions of the lumbar spine secondary to pain. Strength is 5/5 bilaterally in the lower extremities. There are no sensory deficits noted. Lumbar Spine / Lower Back: ROM limited Extremity normal to inspection General Extremety ED: Negative for edema or tenderness General Extremity: Negative for edema Neuro oriented x3 and no sensory deficits noted Sensorium / Orientation: alert Motor Exam: strength 5/5 throughout Psych mental status grossly normal MDM MDM MDM Narrative Medical decision making narrative: Patient was given injection of Toradol here. X-rays of the lumbar spine were obtained. There are 3 views. On my interpretation, there is no acute fracture or spondylolisthesis. Radiologist also interpreted the x-rays and agrees. Patient was advised of her findings. Patient was instructed to use ice to the area. Patient was given prescriptions for Naprosyn and Flexeril. Patient was instructed to follow-up with her primary care physician in 5 to 7 days. Patient understood and was agreeable with the plan. All questions were answered. Radiography X-Ray: LS SPine, Read by ED Physician, Read by Radiologist, Normal, No Fracture and Normal Bony Alignment Diagnostic Testing: Clinical Impression(s) from Imaging Studies Lumbar Spine X-Ray 01/30/22 11:35 IMPRESSION: Normal x-ray examination of the lumbar spine. Electronically Signed: Andrea Guerrero MD at 11:55 EST , Discharge Plan Triage Chief Complaint: Back ED Provider: Kyle Harris Dx/Rx/DC Orders Clinical Impression: Acute low back pain, Anxiety Instructions: ED Back Sprain/Strain Prescriptions: New cyclobenzaprine [cyclobenzaprine] 10 MG tablet 10 mg PO QHS PRN PRN (Reason: Muscle Spasm) Qty: 10 0RF naproxen 500 MG tablet 500 mg PO BID PRN Qty: 20 0RF Primary Care Provider: Brett Hoff Referrals: Brett Hoff MD [Primary Care Provider] - 5-7 Days
[2022-01-30 13:18] VITALS: BP 123/76; PULSE 92
== END 2022-01-30 13:20 | disposition home or self-care (01) ==
LOC: ED 11:29
PROVIDERS: Emergency Provider Emergency Medicine; PCP Family Medicine; Visit Provider Emergency Medicine
DX: M54.50 Low back pain, unspecified (principal); F41.9 Anxiety disorder, unspecified; M79.605 Pain in left leg; M79.604 Pain in right leg; R11.2 Nausea with vomiting, unspecified; F17.210 Nicotine dependence, cigarettes, uncomplicated
CPT/HCPCS: 72100; 96372; 99284

== ENCOUNTER 2022-02-14 01:26 | Emergency (ER) | payer MEDICAID, SELFPAY ==
[2022-02-14 01:27] VITALS: BP 132/89; PULSE 87; RESP 18; TEMP 36.3; O2SAT 96; BMI 21.2
--- NOTE | 2022-02-14 01:46 | EDS_ITS ---
HPI History of Present Illness Chief Complaint: Ear Problem Narrative Narrative: Patient is a 31-year-old female with past medical history of anxiety and asthma. She states her 4-year-old son has been sick for approximately 1 week and he has been coughing on her. She states over the last 3 to 4 days she had increased congestion and drainage. She states today she developed right-sided facial pain as well is right ear pain. She states as time past the pain in the ear became more and more severe to the point where she is concerned she has an ear infection and secondary to this she comes in for evaluation. Patient denies any blood or discharge from the ear canal. [facility] Medical History Anxiety Asthma Chlamydia History of back injury Hx of fracture of right hip PID (acute pelvic inflammatory disease) Seizures Home Medications cefdinir 300 mg capsule 300 mg PO BID 10 days #20 caps 02/14/22 [Rx Last Taken Unknown] prednisone 20 mg tablet 40 mg PO DAILY 7 days #14 tabs 02/14/22 [Rx Last Taken Unknown] Allergy/AdvReac Type Severity Reaction Status Date / Time Penicillins Allergy Swelling Verified 02/14/22 01:29 shellfish derived Allergy Swelling Verified 02/14/22 01:29 Surgical History History of gynecologic surgery Hx of tonsillectomy Social History household members: children Smoking Status: Current every day smoker tobacco type: cigarettes alcohol intake: never substance use type: does not use ROS ROS ED Constitutional Constitutional ED: Denies chills or fever(s) ENT ENT ED: Reports ear pain, rhinorrhea and sore throat Cardiovascular Cardiovascular: Denies chest pain Respiratory/Chest Respiratory/Chest: Reports cough; Denies dyspnea Gastrointestinal Gastrointestinal: Denies abdominal pain, diarrhea, nausea or vomiting Genitourinary Genitourinary ED: Denies dysuria Musculoskeletal Musculoskeletal: Denies myalgias Integumentary Denies rash Neurologic Neurologic: Reports headache(s) Hematologic/Lymphatic Hematologic/Lymphatic: Denies easy bleeding or easy bruising EXAM Physical Exam Const Vital Signs: 02/14/22 01:27 Temperature 97.3 F L Temperature Source Temporal Pulse Rate 87 Respiratory Rate 18 Blood Pressure 132/89 H Blood Pressure Mean 103 Pulse Ox 96 Oxygen Delivery Method Room Air Positive well nourished and well developed General Appearance ED: well developed HEENT Reports moist mucous membranes HEENT Narrative: Cobblestoning noted in the posterior pharynx consistent with sinus drainage. No secondary changes to suggest infection. Nasal mucosa is hyperemic and boggy with enlarged inferior nasal turbinate. The left canal and TM are normal. Right canal is normal but the TM is erythematous and bulging with loss of landmarks and air-fluid level consistent with otitis media. No perforation noted. No pain with palpation of bilateral mastoids. Eyes PERRL and EOMs intact bilaterally Neck supple Neck Narrative: Positive anterior cervical lymphadenopathy present Resp normal respiratory effort and clear to auscultation bilaterally Cardio regular rate and regular rhythm Extremity normal to inspection Neuro oriented x3 and CN's II-XII intact bilaterally Sensorium / Orientation: alert Psych mental status grossly normal Skin no rashes or lesions noted MDM MDM MDM Narrative Medical decision making narrative: Patient presented to the ER afebrile and in no acute distress. History is consistent with an upper respiratory tract infection. However the physical exam does show gross asymmetry between the left and right tympanic membrane indicating patient has an acute right-sided otitis media. At this time there are no physical exam findings concerning for malignant otitis externa or mastoiditis so do not feel there is need for imaging or laboratory study. Patient replaced on steroids to reduce inflammation and pressure as well as antibiotics secondary to the acute infection. However she does not have signs of systemic infection she is otherwise safe for discharge Discharge Plan Triage Chief Complaint: Ear Problem ED Provider: Nathan Gonzales Dx/Rx/DC Orders Clinical Impression: Acute right otitis media, Acute upper respiratory infection Instructions: ED Otitis Media Antibiotic ..., ED URI, Viral, No Abx (Adult) Prescriptions: New cefdinir 300 mg capsule 300 mg PO BID 10 Days Qty: 20 0RF prednisone 20 mg tablet 40 mg PO DAILY 7 Days Qty: 14 0RF Primary Care Provider: Brett Hoff Referrals: Brett Hoff MD [Primary Care Provider] - Activity Restrictions/Additional Instructions: You have 2 infections at this time. The first is an upper respiratory infection which will last 18 to 21 days and is a virus which you cannot kill with antibiotics. The second is an inner ear infection and secondary to this infection you have been given antibiotic and prednisone. This will reduce the infection and the pressure on your ear and lead to symptom improvement in the next 2 to 3 days. If you have any further concerns please return for repeat evaluation Disposition Disposition: Home, Self Care Discharge Date/Time: 02/14/22 02:06
[2022-02-14] MEDS: Cefdinir 300 MG Capsule PO (02:04)
[2022-02-14] MEDS: predniSONE 20 MG Tablet 60 MG PO (02:04)
[2022-02-14] MEDS: Acetaminophen 500 MG Tablet 1000 MG PO (02:04)
== END 2022-02-14 02:06 | disposition home or self-care (01) ==
LOC: ED 01:51
PROVIDERS: Emergency Provider Emergency Medicine; PCP Family Medicine; Visit Provider Emergency Medicine
DX: H66.91 Otitis media, unspecified, right ear (principal); J06.9 Acute upper respiratory infection, unspecified; F17.210 Nicotine dependence, cigarettes, uncomplicated
CPT/HCPCS: 99283

== ENCOUNTER 2023-03-12 13:22 | Emergency (ER) | payer SELFPAY ==
[2023-03-12 13:23] VITALS: BP 109/73; PULSE 93; RESP 16; TEMP 36.4; O2SAT 100; BMI 27.8
[2023-03-12 15:45] VITALS: BP 120/65; PULSE 74; RESP 16; O2SAT 99
--- NOTE | 2023-03-12 15:47 | EDS_ITS ---
HPI History of Present Illness Chief Complaint: GI Bleed Informant: patient Narrative Narrative: 33-year-old female presenting to the emergency room with rectal bleeding. Patient states that she had a hard bowel movement this morning and noticed a lot of blood with clots in the toilet water. She states she had a very short amount of sharp rectal pain. She is only had the 1 bowel movement this morning. No prior Occurrences of this. No abdominal pain. No fevers. No anticoagulants. No recent antibiotics. PFSH PFSH Medical History Anxiety Asthma Chlamydia History of back injury Hx of fracture of right hip PID (acute pelvic inflammatory disease) Seizures Home Medications cefdinir 300 mg capsule 300 mg PO BID 10 days #20 caps 02/14/22 [Rx Last Taken Unknown] prednisone 20 mg tablet 40 mg (2 x 20 mg) PO DAILY 7 days #14 tabs 02/14/22 [Rx Last Taken Unknown] Allergy/AdvReac Type Severity Reaction Status Date / Time Penicillins Allergy Swelling Verified 03/12/23 13:25 shellfish derived Allergy Swelling Verified 03/12/23 13:25 Surgical History History of gynecologic surgery Hx of tonsillectomy Social History household members: children Smoking Status: Current every day smoker tobacco type: cigarettes alcohol intake: never substance use type: does not use ROS ROS ED Constitutional Constitutional ED: Denies chills or weight loss Eyes Eyes: Denies change in vision or diplopia ENT ENT ED: Denies ear pain, rhinorrhea or sore throat Cardiovascular Cardiovascular: Denies chest pain, orthopnea, palpitations or racing heartbeat Respiratory/Chest Respiratory/Chest: Denies cough, dyspnea or orthopnea Gastrointestinal Gastrointestinal: Reports other Details: Bright red rectal bleeding ; Denies abdominal pain, diarrhea, nausea or vomiting Genitourinary Genitourinary ED: Denies dysuria, hematuria or urinary frequency Musculoskeletal Musculoskeletal: Denies arthralgias or myalgias Integumentary Denies abscess or rash Neurologic Neurologic: Denies headache(s) or weakness Psychiatric Psychiatric: Denies anxiety, depression, suicidal ideation or suicidal thoughts Endocrine Endocrinology: Denies polydipsia, polyphagia or polyuria Allergic/Immunologic Allergic/Immunologic ED: Denies mouth swelling, tongue swelling or urticaria EXAM Physical Exam Const Vital Signs: 03/12/23 13:23 03/12/23 15:45 Temperature 97.5 F L Temperature Source Temporal Pulse Rate 93 74 Respiratory Rate 16 16 Blood Pressure 109/73 120/65 Blood Pressure Mean 85 83 Pulse Ox 100 99 Oxygen Delivery Method Room Air Positive well nourished and well developed General Appearance ED: well developed HEENT Reports normocephalic, head/scalp atraumatic and moist mucous membranes Eyes PERRL and EOMs intact bilaterally Neck no lymphadenopathy, supple and no JVD Resp normal respiratory effort and clear to auscultation bilaterally Cardio regular rate, regular rhythm and no murmurs GI normal to inspection, nondistended, normoactive bowel sounds and non-tender Palpation: soft Narrative: Rectal examination was performed in the presence of female nurse assigned to the patient. This demonstrates an obvious anal fissure with a fresh clot. I do not appreciate any acute rectal bleeding. No obvious hemorrhoids. Back/Spine no CVA tenderness and normal ROM Extremity normal to inspection General Extremety ED: Negative for edema General Extremity: Negative for edema Neuro oriented x3 and CN's II-XII intact bilaterally Sensorium / Orientation: alert Motor Exam: strength 5/5 throughout Psych mental status grossly normal Mood & Affect: Negative for depressed or tearful Skin no rashes or lesions noted and no wounds MDM MDM MDM Narrative Medical decision making narrative: Patient had 1 episode of bright red rectal bleeding after a hard bowel movement with evidence of a anal fissure. I think the patient may be discharged home. I do not feel the patient is anemic needed blood transfusion or hospitalization. She has normal vital signs and benign abdomen. I would suspect if she was continuing to bleed internally that she would have more than 1 episode over the course of the morning. I think the patient can be discharged home. Home instructions were given as well as follow-up if needed. Discharge Plan Triage Chief Complaint: GI Bleed ED Provider: Pancho Cabral Dx/Rx/DC Orders Clinical Impression: Acute anal fissure, Acute lower gastrointestinal bleeding Instructions: ED Understanding Anal Fissures, ED Lower GI Bleeding (Stable) Prescriptions: No Action cefdinir 300 mg capsule 300 mg PO BID 10 Days Qty: 20 0RF prednisone 20 mg tablet 40 mg PO DAILY 7 Days Qty: 14 0RF Primary Care Provider: Sadia Wheatley Referrals: Sadia Wheatley, [facility] [employer] [Primary Care Provider] - As Needed Star Aguirre MD [Med Staff - Active Staff] - As Needed (For surgical referral if needed) Disposition Disposition: Home, Self Care Discharge Date/Time: 03/12/23 15:46
== END 2023-03-12 15:46 | disposition home or self-care (01) ==
PROVIDERS: Emergency Provider Emergency Medicine; PCP Nurse Practitioner Family; Visit Provider Emergency Medicine
DX: K60.0 Acute anal fissure (principal); K92.2 Gastrointestinal hemorrhage, unspecified; F17.210 Nicotine dependence, cigarettes, uncomplicated
CPT/HCPCS: 99282

== ENCOUNTER 2023-06-11 20:25 | Emergency (ER) | payer SELFPAY ==
[2023-06-11 20:26] VITALS: BP 110/90; PULSE 100; RESP 18; TEMP 36.7; O2SAT 99; BMI 30.4
--- NOTE | 2023-06-11 20:55 | EDS_ITS ---
HPI <LINDA Carty - Last Filed: 06/11/23 21:52> History of Present Illness Chief Complaint: Lower Extremity Injury Narrative Narrative: Patient presenting today with pain to her left first toe that she has had for the past several months. She reports that she had a pedicure about 4 months ago and thinks that they may have clipped her nail too short because she developed an ingrown toenail. She reports that today she just could not take the pain a nymore and presents for evaluation. No history of ingrown toenails. PFSH <LINDA Carty - Last Filed: 06/11/23 21:52> PFSH Medical History Anxiety Asthma Chlamydia Former smoker History of back injury Hx of fracture of right hip PID (acute pelvic inflammatory disease) Seizures Home Medications NK 06/11/23 [History Last Taken Unknown] Allergy/AdvReac Type Severity Reaction Status Date / Time Penicillins Allergy Swelling Verified 06/11/23 20:28 shellfish derived Allergy Swelling Verified 06/11/23 20:28 Surgical History History of gynecologic surgery Hx of tonsillectomy Social History household members: children Smoking Status: Former smoker alcohol intake: never substance use type: does not use ROS <LINDA Carty - Last Filed: 06/11/23 21:52> ROS ED Constitutional Constitutional ED: Denies chills or fever(s) Cardiovascular Cardiovascular: Denies chest pain Respiratory/Chest Respiratory/Chest: Denies cough or dyspnea Gastrointestinal Gastrointestinal: Denies abdominal pain, nausea or vomiting Genitourinary Genitourinary ED: Denies dysuria, hematuria or urinary urgency Musculoskeletal Musculoskeletal: Reports arthralgias Integumentary Denies rash Neurologic Neurologic: Denies weakness EXAM <LINDA Carty - Last Filed: 06/11/23 21:52> Physical Exam Const Vital Signs: 06/11/23 20:26 06/11/23 21:50 Temperature 98.0 F 98.1 F Temperature Source Temporal Pulse Rate 100 80 Respiratory Rate 18 16 Blood Pressure 110/90 H 108/79 Blood Pressure Mean 96 88 Pulse Ox 99 100 Oxygen Delivery Method Room Air Positive well nourished, well developed and no apparent distress General Appearance ED: well developed HEENT Reports normocephalic and head/scalp atraumatic Mouth ED: Yes moist mucous membranes normal Eyes PERRL and EOMs intact bilaterally Neck full ROM and supple Chest Wall inspection of chest normal Resp normal respiratory effort and clear to auscultation bilaterally Cardio regular rate and regular rhythm GI soft to palpation, non-tender, non-distended and no masses Back/Spine normal ROM and normal to inspection Extremity normal to inspection and full ROM Extremity Narrative: Slight erythema and pain to palpation to the medial aspect of the left first toe, ingrown toenail. Neuro oriented x3, CN's II-XII intact bilaterally, moves all extremities, no focal motor deficits and no sensory deficits noted Sensorium / Orientation: awake and alert Psych mental status grossly normal and thought process normal Skin no rashes or lesions noted and no wounds <Dr. Lui Akins MD - Last Filed: 06/12/23 00:50> Physical Exam Const Vital Signs: 06/11/23 20:26 06/11/23 21:50 Temperature 98.0 F 98.1 F Temperature Source Temporal Pulse Rate 100 80 Respiratory Rate 18 16 Blood Pressure 110/90 H 108/79 Blood Pressure Mean 96 88 Pulse Ox 99 100 Oxygen Delivery Method Room Air MDM <LINDA Carty - Last Filed: 06/11/23 21:52> [facility] Narrative Medical decision making narrative: Patient presenting today with an ingrown left first toenail. It has been there for several months but today she just could not take the pain anymore and presents requesting to have it removed. Digital block performed and medial aspect of the toenail was successfully removed. Patient tolerated procedure well. Wound was bandaged. Will give podiatry follow-up, wound care instructions discussed, she can alternate Tylenol and ibuprofen for pain as needed. She will be discharged home in stable condition. <Dr. Lui Akins MD - Last Filed: 06/12/23 00:50> [facility] Treatment and Re-Evaluation Narrative: I have personally performed a face to face assessment of the patient and have reviewed the NAI Note. I performed a substantive portion of the visit including all aspects of the following. My cole findings include: History is symptoms of an ingrown toenail after a pedicure, has been painful for the past 4 months and getting worse. No fevers, no discharge. Exam is tender mild erythema tibial aspect of the left great toenail. No abscess. Medical Decison Making offered digital block and excision of the tibial aspect of the ingrown portion of the toenail, patient amenable. Does not appear to be infected just inflamed. Other additions or changes: [None] Procedures <LINDA Carty - Last Filed: 06/11/23 21:52> Other Procedures Procedure(s): Ingrown toenail removal: Left first toe extensively cleaned with saline and chlorhexidine. Digital block performed with 1% lidocaine, medial 1/3 of toenail was successfully removed. Bacitracin ointment applied, toe bandaged. Discharge Plan Triage Chief Complaint: Lower Extremity Injury ED Midlevel Provider: Ilana Wasserman ED Provider: Lui Akins Dx/Rx/DC Orders Clinical Impression: Ingrown left big toenail Instructions: ED Ingrown Toenail, Excised Prescriptions: No Action NK Primary Care Provider: Sadia Wheatley Referrals: Sadia Wheatley, TONE [Primary Care Provider] - Pancho Hayes DPM [Med Staff - Active Staff] - 5-7 Days Activity Restrictions/Additional Instructions: Follow-up with podiatry. Keep toe clean and covered. Alternate Tylenol and ibuprofen every 4 hours for your pain. Disposition Disposition: Home, Self Care Discharge Date/Time: 06/11/23 22:02
[2023-06-11 21:50] VITALS: BP 108/79; PULSE 80; RESP 16; TEMP 36.7; O2SAT 100
== END 2023-06-11 22:02 | disposition home or self-care (01) ==
PROVIDERS: Emergency Provider Emergency Medicine; PCP Nurse Practitioner Family; Visit Provider Emergency Medicine
DX: L60.0 Ingrowing nail (principal); Z87.891 Personal history of nicotine dependence
CPT/HCPCS: 11765; 99282

== ENCOUNTER 2024-08-16 12:16 | Emergency (ER) | payer MEDICAID, SELFPAY ==
[2024-08-16 12:17] VITALS: BP 180/137; PULSE 127; RESP 18; TEMP 36.6; O2SAT 99; BMI 25.8
[2024-08-16 12:20] VITALS: BP 142/110; PULSE 119; RESP 18; O2SAT 100
--- NOTE | 2024-08-16 12:53 | CT_ITS ---
PROCEDURE: SPINE THORACIC WITHOUT CONTRAS REASON FOR EXAM: TRAUMA TECHNIQUE: Thoracic spine CT without contrast. Coronal and Sagittal reconstruction series were provided. One or more dose reduction techniques were used (e.g., Automated exposure control, adjustment of the mA and/or kV according to patient size, use of iterative reconstruction technique). RADIATION DOSE SUMMARY: CTDlvol: 20 mGy DLP: 1141.67 mGycm COMPARISON: None FINDINGS: Alignment: No evidence of scoliosis. Bones: Multilevel disc space narrowing and mild degree of anterior spondylosis. Soft Tissues: No paravertebral soft tissue swelling. Other: CT/Spine Thoracic without Contras IMPRESSION: NO ACUTE THORACIC FRACTURE. DEGENERATIVE CHANGES. [facility]
--- NOTE | 2024-08-16 12:53 | CT_ITS ---
PROCEDURE: SPINE CERVICAL WITHOUT CONTRAS 08/16/2024 REASON FOR EXAM: TRAUMA TECHNIQUE: Cervical spine CT without contrast. Coronal and Sagittal reconstruction series were provided. One or more dose reduction techniques were used (e.g., Automated exposure control, adjustment of the mA and/or kV according to patient size, use of iterative reconstruction technique RADIATION DOSE SUMMARY: CTDlvol: 20 mGy DLP: 1141.67 mGycm COMPARISON: None FINDINGS: Alignment: Straightening of the normal cervical lordosis. Vertebrae: The vertebra are unremarkable. Soft Tissues: No paravertebral soft tissue swelling. C1-2: Unremarkable C2-3: Unremarkable C3-4: Unremarkable C4-5: Unremarkable C5-6: Unremarkable C6-7: Unremarkable C7-T1: Unremarkable CT/Spine Cervical without Contras IMPRESSION: Straightening of the normal cervical lordosis. No acute abnormality is seen. Reading Location: [place] [id number]
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
[2024-08-16 14:16] VITALS: BP 137/78; PULSE 85; RESP 18; TEMP 36.6; O2SAT 100
== END 2024-08-16 14:19 | disposition home or self-care (01) ==
PROVIDERS: Emergency Provider Emergency Medicine; PCP Nurse Practitioner Family; Referring Provider Emergency Medicine; Visit Provider Emergency Medicine
DX: S16.1XXA Strain of muscle, fascia and tendon at neck level, initial encounter (principal); M54.6 Pain in thoracic spine; J45.909 Unspecified asthma, uncomplicated; F17.210 Nicotine dependence, cigarettes, uncomplicated; F17.290 Nicotine dependence, other tobacco product, uncomplicated
CPT/HCPCS: 72125; 72128; 73030; 99282